=== PATIENT | female | born 1965 | race Hispanic/Latino ===

== ENCOUNTER 2017-02-21 09:52 | Emergency (ER) | payer BC, OTHER ==
[2017-02-21] MEDS ORDERED: ANTIVERT PO ONE (11:27)
--- NOTE | 2017-02-21 11:30 | Emergency Department Report ---
ED General Adult HPI - General Chief complaint: Dizziness Stated complaint: VERTIGO Time Seen by Provider: 02/21/17 11:26 Source: patient, RN notes reviewed Mode of arrival: Ambulatory Limitations: No Limitations - History of Present Illness Initial comments: This is a 51-year-old female. She is previously unknown to me. Her primary care doctor is Dr. Jacob Castellon. She reports a past medical history of hypertension and diabetes. The patient presents to the ER complaining of vertigo. She describes the sensation of vertigo as room spinning, she had a nonspecific change in vision in which she describes her depth perception is off, and she felt like her body was out of place. It resolved with meclizine. There is no severe headache, neck pain, chest pain, abdominal pain or shortness of breath. There is no currently no blurry vision or loss of vision, there is no ataxia. The patient denies a history of eyedrop application, and ocular surgeries. As far as the patient knows, she does not have any chronic asymmetry to her pupils. -: Gradual, days(s) (patient reports symptoms have been going on for the past few days, she reports this started on Friday) Consistency: now resolved Improves with: medication Worsens with: movement Associated Symptoms: denies other symptoms - Related Data Previous Rx's Medication Instructions Recorded Last Taken Type Aspirin [Aspirin TAB] 325 mg PO ONCE #30 tablet 02/21/17 Unknown Rx AtorvaSTATin [Lipitor] 10 mg PO QHS #30 tab 02/21/17 Unknown Rx Meclizine [Antivert] 25 mg PO TID PRN #20 tablet 02/21/17 Unknown Rx Allergies Allergy/AdvReac Type Severity Reaction Status Date / Time No Known Allergies Allergy Unverified 02/21/17 10:43 ED Review of Systems ROS: Stated complaint: VERTIGO Other details as noted in HPI Constitutional: denies: fever, malaise Eyes: denies: vision change ENT: denies: throat pain, epistaxis, congestion Respiratory: denies: cough Cardiovascular: denies: chest pain Gastrointestinal: denies: abdominal pain Genitourinary: denies: dysuria Skin: as per HPI Neurological: as per HPI, abnormal gait, vertigo. denies: headache, numbness, paresthesias, confusion Psychiatric: as per HPI ED Past Medical Hx - Past Medical History Previous Medical History?: Yes Hx Hypertension: Yes Hx Diabetes: Yes - Surgical History Past Surgical History?: No - Social History Smoking Status: Never Smoker Substance Use Type: None - Medications Home Medications: Home Medications Medication Instructions Recorded Confirmed Last Taken Type Aspirin [Aspirin TAB] 325 mg PO ONCE #30 tablet 02/21/17 Unknown Rx AtorvaSTATin [Lipitor] 10 mg PO QHS #30 tab 02/21/17 Unknown Rx Meclizine [Antivert] 25 mg PO TID PRN #20 tablet 02/21/17 Unknown Rx ED Physical Exam - General Limitations: No Limitations General appearance: alert, in no apparent distress - Head Head exam: Present: atraumatic, normocephalic - Eye Eye exam: Present: PERRL (the left pupil is smaller than the right, approximately 3 mm worse the left is 4-5. The right pupil does not react to light, and the left pupil dilates when the room is dark, but does constrict to light application.), EOMI, other (visual acuity intact to finger counting, color perception, reading at a close distance). Absent: nystagmus - ENT ENT exam: Present: normal exam, normal orophraynx, mucous membranes moist, normal external ear exam - Neck Neck exam: Present: normal inspection, full ROM. Absent: tenderness, meningismus - Respiratory Respiratory exam: Present: normal lung sounds bilaterally. Absent: respiratory distress, wheezes, rales, rhonchi, stridor, chest wall tenderness, accessory muscle use, decreased breath sounds, prolonged expiratory - Cardiovascular Cardiovascular Exam: Present: regular rate, normal rhythm, normal heart sounds. Absent: bradycardia, tachycardia, irregular rhythm, systolic murmur, diastolic murmur, rubs, gallop - GI/Abdominal GI/Abdominal exam: Present: soft, normal bowel sounds. Absent: distended, tenderness, guarding, rebound, rigid, pulsatile mass - Extremities Exam Extremities exam: Present: normal inspection, full ROM, normal capillary refill. Absent: tenderness, pedal edema, joint swelling, calf tenderness - Back Exam Back exam: Present: normal inspection, full ROM. Absent: tenderness, CVA tenderness (R), CVA tenderness (L), muscle spasm, paraspinal tenderness, vertebral tenderness - Neurological Exam Neurological exam: Present: alert, oriented X3, normal gait, other (Extraocular movements intact. Tongue midline. No facial droop. Facial sensation intact to light touch in the V1, V2, V3 distribution bilaterally. 5 and 5 strength in 4 extremities.. Sensation is intact to light touch in 4 extremities.). Absent : motor sensory deficit - Psychiatric Psychiatric exam: Present: normal affect, normal mood - Skin Skin exam: Present: warm, dry, intact, normal color. Absent: rash ED Course Vital Signs 02/21/17 02/21/17 02/21/17 10:43 13:17 14:20 Temperature 98.0 F Pulse Rate 95 H 100 H Respiratory 16 16 Rate Blood Pressure 172/95 Blood Pressure 180/95 [Left] O2 Sat by Pulse 100 100 99 Oximetry 02/21/17 02/21/17 02/21/17 14:30 14:40 14:50 Temperature Pulse Rate Respiratory Rate Blood Pressure Blood Pressure [Left] O2 Sat by Pulse 98 99 99 Oximetry 02/21/17 02/21/17 02/21/17 15:00 15:10 15:20 Temperature Pulse Rate Respiratory Rate Blood Pressure Blood Pressure [Left] O2 Sat by Pulse 99 99 98 Oximetry 02/21/17 02/21/17 15:30 15:40 Temperature Pulse Rate Respiratory Rate Blood Pressure Blood Pressure [Left] O2 Sat by Pulse 98 98 Oximetry - Reevaluation(s) Reevaluation #1: 02/21/17 13:58 Differential diagnosis: Vertigo, posterior communicating artery aneurysm, transient ischemic attack, demyelinating disease, strokes, transient ischemic attack Assessment and plan: 51-year-old female with nonspecific change and depth perception, nonspecific sensation of room spinning, and nonspecific disruption in balance, which has since resolved, with large right pupil that stasis the same size both in and illuminated room and in the dark room, 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 She is afebrile, with reassuring vital signs, with the exception of hypertension /elevated blood pressure. She has a GCS of 15, with an NIH score of 0. Given nonspecific findings, pupillary examination, a noncontrast CT scan of the head was performed, did not demonstrate any acute findings, but as per discussion with consulting neurologist at [facility], Dr. Diggs, old lacunes are noted and appreciated. He recommended an MR of the brain, with and without contrast, and MR angiogram of the head and neck, with and without contrast, to exclude stroke, evaluating disease, and posterior communicating artery aneurysm. Extensive discussion had with the patient, as far she knows, has not had any issues with pupillary asymmetry in the past. She was given Valium for sedation because she was quite anxious, and is currently in MR at this time. Reevaluation #2: 02/21/17 16:21 patient is reexamined, and remains asymptomatic. MRI of the brain negative for acute findings. MR angiogram negative for acute findings. Patient requests to go home. We contacted the consulting neurologist, Dr. Diggs, and he has personally reviewed the patient's MRI findings. He recommends initiation of a statin, such as Lipitor, 10 mg. Patient states she is going to follow up with her primary care doctor next month. She'll be started on aspirin, and I have written her for a prescription of Lipitor. Liver function tests and lipid panel not resulted, however the consulting neurologist still recommend statins. Therefore, I have ordered these tests as an add on, and the patient is instructed to contact the ER tomorrow, when I will be working, so I can review her laboratory studies, and make a final recommendation about initiating statin therapy. The patient is accompanied by her , and she is reliable at this time, and she will be discharged. 02/21/17 16:22 Reevaluation #3: 02/22/17 16:36 labs reviewed. liver tests wnl and appreciated triglycerides slightly elevated patient contacted she will continue lipitor and follow up with her pmd ED Medical Decision Making - Lab Data Result diagrams: 02/21/17 11:13 02/21/17 11:13 Vital Signs 02/21/17 02/21/17 10:43 13:17 Temperature 98.0 F Pulse Rate 95 H 100 H Respiratory 16 16 Rate Blood Pressure 172/95 Blood Pressure 180/95 [Left] O2 Sat by Pulse 100 100 Oximetry Lab Results 02/21/17 02/21/17 02/21/17 Range/Units 11:13 11:13 11:13 WBC 8.5 (4.5-11.0) K/mm3 RBC 4.55 (3.65-5.03) M/mm3 Hgb 12.4 (10.1-14.3) gm/dl Hct 37.7 (30.3-42.9) % MCV 83 (79-97) fl MCH 27 L (28-32) pg MCHC 33 (30-34) % RDW 14.1 (13.2-15.2) % Plt Count 372 (140-440) K/mm3 Lymph % (Auto) 32.0 (13.4-35.0) % [place] % (Auto) 9.6 H (0.0-7.3) % Eos % (Auto) 1.6 (0.0-4.3) % Baso % (Auto) 0.7 (0.0-1.8) % Lymph # 2.7 (1.2-5.4) K/mm3 [place] # 0.8 (0.0-0.8) K/mm3 Eos # 0.1 (0.0-0.4) K/mm3 Baso # 0.1 (0.0-0.1) K/mm3 Seg Neutrophils % 56.1 (40.0-70.0) % Seg Neutrophils # 4.8 (1.8-7.7) K/mm3 PT 13.7 (12.2-14.9) Sec. INR 1.06 (0.87-1.13) APTT 25.6 (24.2-36.6) Sec. Thrombin Time (15.1-19.6) Sec. Sodium 137 (137-145) mmol/L Potassium 4.0 (3.6-5.0) mmol/L Chloride 95.4 L (98-107) mmol/L Carbon Dioxide 29 (22-30) mmol/L Anion Gap 17 mmol/L BUN 17 (7-17) mg/dL Creatinine 0.7 (0.7-1.2) mg/dL Estimated GFR > 60 ml/min BUN/Creatinine Ratio 24.28 % Glucose 237 H (65-100) mg/dL Calcium 9.3 (8.4-10.2) mg/dL Troponin T < 0.010 (0.00-0.029) ng/mL 02/21/17 Range/Units 11:13 WBC (4.5-11.0) K/mm3 RBC (3.65-5.03) M/mm3 Hgb (10.1-14.3) gm/dl Hct (30.3-42.9) % MCV (79-97) fl MCH (28-32) pg MCHC (30-34) % RDW (13.2-15.2) % Plt Count (140-440) K/mm3 Lymph % (Auto) (13.4-35.0) % [place] % (Auto) (0.0-7.3) % Eos % (Auto) (0.0-4.3) % Baso % (Auto) (0.0-1.8) % Lymph # (1.2-5.4) K/mm3 [place] # (0.0-0.8) K/mm3 Eos # (0.0-0.4) K/mm3 Baso # (0.0-0.1) K/mm3 Seg Neutrophils % (40.0-70.0) % Seg Neutrophils # (1.8-7.7) K/mm3 PT (12.2-14.9) Sec. INR (0.87-1.13) APTT (24.2-36.6) Sec. Thrombin Time 17.1 (15.1-19.6) Sec. Sodium (137-145) mmol/L Potassium (3.6-5.0) mmol/L Chloride (98-107) mmol/L Carbon Dioxide (22-30) mmol/L Anion Gap mmol/L BUN (7-17) mg/dL Creatinine (0.7-1.2) mg/dL Estimated GFR ml/min BUN/Creatinine Ratio % Glucose (65-100) mg/dL Calcium (8.4-10.2) mg/dL Troponin T (0.00-0.029) ng/mL - EKG Data 02/21/17 14:01 96 bpm, normal axis, QTC 469 ms, poor R wave progression, abnormal EKG, not morphologically consistent with STEMI, there is no prior for comparison. - Radiology Data Radiology results: report reviewed, image reviewed Noncontrast CT scan of the brain demonstrates no acute findings. 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 MR angiogram of the brain is negative. MR angiogram of the neck pending. Critical care attestation.: If time is entered above; I have spent that time in minutes in the direct care of this critically ill patient, excluding procedure time. ED Disposition Clinical Impression: Dizziness, Elevated blood pressure reading Disposition: TO HOME OR SELFCARE Is pt being admited?: No Does the pt Need Aspirin: No Condition: Stable Instructions: Transient Ischemic Attack (ED) Additional Instructions: As we discussed, MR findings demonstrated evidence of old strokes. These note that blood pressure was elevated. This should be further followed up by her primary care doctor within the next month. Long-term complications of hypertension/elevated blood pressure includes stroke, heart attack, disability, , paralysis, loss of quality of life. A prescription for cholesterol (lipitor) has been written for you, however some laboratory studies are still pending. Please contact the emergency department, tomorrow, February 22, anytime after 4 PM, and asked for me personally; [phone]. Additional laboratory studies have been added on, and I will follow-up on most tomorrow, and instructed as to whether or not it is safe and appropriate to initiate a statin medication. Please return to the ER right away with fevers, chills, chest pain, shortness of breath, confusion, intractable nausea or vomiting, inability to tolerate liquid feeds. Follow up with your primary care doctor within the next 2-3 weeks. Follow up with either of those listed neurology specialist (Dr. Truong, Dr. Sequeira), within the next month to 6 weeks. Return to the ER right away with confusion, or change in mental status. Prescriptions: AtorvaSTATin [Lipitor] 10 mg PO QHS #30 tab Aspirin [Aspirin TAB] 325 mg PO ONCE #30 tablet Meclizine [Antivert] 25 mg PO TID PRN #20 tablet PRN Reason: Vertigo Referrals: CA CASTELLON MD [Primary Care Provider] - 3-5 Days GOOD SEQUEIRA MD [Staff Physician] - 3-5 Days CA TRUONG MD [Staff Physician] - 3-5 Days Forms: Work/School Release Form(ED)
[2017-02-21 11:33] LABS: Basophils % (Auto) 0.7 % (0.0-1.8); Eosinophils % (Auto) 1.6 % (0.0-4.3); Hematocrit 37.7 % (30.3-42.9); Hemoglobin 12.4 gm/dl (10.1-14.3); Mean Corpuscular HGB Conc 33 % (30-34); Mean Corpuscular Hemoglobin 27 pg (28-32); Mean Corpuscular Volume 83 fl (79-97); Platelet Count 372 K/mm3 (140-440); Red Blood Count 4.55 M/mm3 (3.65-5.03); Red Cell Distribution Width 14.1 % (13.2-15.2); White Blood Count 8.5 K/mm3 (4.5-11.0)
[2017-02-21 11:42] LABS: Anion Gap 17 mmol/L; BUN/Creatinine Ratio 24.28; Blood Urea Nitrogen 17 mg/dL (7-17); Calcium 9.3 mg/dL (8.4-10.2); Carbon Dioxide 29 mmol/L (22-30); Chloride 95.4 mmol/L (98-107); Glucose 237 mg/dL (65-100); Sodium 137 mmol/L (137-145)
--- NOTE | 2017-02-21 11:44 | Cat Scan Report ---
CT scan of head without contrast: History: absent. Findings: Ventricles are normal in size and midline in location. No evidence of acute ischemia, hemorrhage or mass. No extra axial fluid collection. Normal brainstem and cerebellum. Normal sinuses and mastoid air cells. Impression: No acute intracranial abnormality.
[2017-02-21 11:47] LABS: INR 1.06 (0.87-1.13); Partial Thromboplastin Time 25.6 Sec. (24.2-36.6)
[2017-02-21] MEDS ORDERED: VALIUM IV ONE (12:38)
[2017-02-21 13:18] VITALS: BP 180/95
--- NOTE | 2017-02-21 15:18 | Magnetic Resonance Report ---
MRI BRAIN WITH AND WITHOUT CONTRAST INDICATION: TIA versus CVA versus demyelinating disease. COMPARISON: Head CT from earlier today. FINDINGS: Pre-and post contrast multiplanar and multisequence MRI of the brain performed utilizing 19 ml Multihance intravenously demonstrates normal ventricles and sulci without acute infarct, hemorrhage, mass effect or midline shift. No abnormal extra-axial masses or fluid collections. Normal major intracranial vascular flow voids. Few T2 hyperintensities in the deacon measure approximately 5 mm, axial series 7, images 8 and 9. No abnormal enhancement. Normal posterior fossa structures with symmetric seventh and eighth nerve complexes. Symmetric, grossly unremarkable eye globes. Rightward nasal septal deviation. Clear imaged paranasal sinuses. Normal midline appearance without evidence of Chiari malformation. CONCLUSION: No acute intracranial MRI abnormality with few incidental findings, including old pontine infarcts, as described. Thank you for the opportunity to participate in this patient's care.
--- NOTE | 2017-02-21 15:20 | Magnetic Resonance Report ---
MRA HEAD WITHOUT CONTRAST INDICATION: TIA versus CVA versus demyelinating disease. COMPARISON: None similar. FINDINGS: MRA of the head performed without intravenous contrast and demonstrates no evidence of flow-limiting stenosis, occlusion or vascular malformation. Please note that detection of aneurysms less than 5 mm is limited on this exam. CONCLUSION: Normal study of the k[place] of [place]. Thank you for the opportunity to participate in this patient's care.
--- NOTE | 2017-02-21 15:25 | Magnetic Resonance Report ---
MRA NECK WITH CONTRAST: INDICATION: TIA versus CVA versus demyelinating disease. COMPARISON: None similar. FINDINGS: MRA of the neck performed in conjunction with accompanying brain MRI utilizing 19 mL of MultiHance intravenously and demonstrates patent aortic arch with normal major branching pattern. Imaged innominate, subclavian, vertebral and carotid arteries appear unremarkable. CONCLUSION: Normal MRA of the neck without significant stenosis. Thank you for the opportunity to participate in this patient's care.
[2017-02-21 17:07] LABS: Alanine Aminotransferase 19 units/L (7-56); Albumin 3.5 g/dL (3.9-5); Albumin/Globulin Ratio 0.7 %; Alkaline Phosphatase 92 units/L (35-129); Cholesterol 175 mg/dL (50-199); Creatine Kinase 43 units/L (30-135); HDL Cholesterol 40 mg/dL (40-59); LDL Cholesterol,Direct 101 mg/dL (50-130); Total Protein 8.8 g/dL (6.3-8.2); Triglycerides 174 mg/dL (2-149)
[2017-02-21 17:15] LABS: Bilirubin,Direct < 0.2 mg/dL (0-0.2)
== END 2017-02-21 17:14 | disposition home or self-care (01) ==
LOC: ED 09:52
DX: R42 Dizziness and giddiness (principal); I10 Essential (primary) hypertension; E11.9 Type 2 diabetes mellitus without complications; Z79.82 Long term (current) use of aspirin
CPT/HCPCS: 36415; 70450; 70544; 70548; 70553; 80048; 80061; 80074; 82550; 84484; 85025; 85610; 85670; 85730; 93005; 93010; 96374; 99285; A9577; J3360; 82962

== ENCOUNTER 2017-11-15 11:34 | Emergency (ER) | payer SELFPAY ==
[2017-11-15 11:45] VITALS: BP 183/96
--- NOTE | 2017-11-15 12:25 | XRay Report ---
LEFT WRIST, 2 views: HISTORY: Left wrist injury. Routine views demonstrate the carpal bones to be well mineralized with well preserved bony mineralization and interosseous joint spaces. The carpal and adjacent articular bones have normal contours. The surrounding soft tissues are unremarkable. IMPRESSION: No acute injury is identified.
[2017-11-15] MEDS ORDERED: ULTRAM PO ONE (13:31)
--- NOTE | 2017-11-15 14:14 | Emergency Department Report ---
ED Upper Extremity Inj HPI - General Chief Complaint: Extremity Injury, Upper Stated Complaint: LEFT WRIST PAIN Time Seen by Provider: 11/15/17 13:31 Source: patient Mode of arrival: Ambulatory Limitations: No Limitations - History of Present Illness Initial Comments: pt is a 52 y/o w/f who present s/p GLG yesterday pt states her dog pulled away and tripped landing on her hand causes pain and wrist swelling , there is no open wound no bledding no deformity Complaint: Injury to:: left, wrist Onset/Timin -: days(s) Other Extremity Injury: Wrist: Left Other Injuries: none Handedness: right Place: outdoors Severity scale (0 -10): 3 Improves With: immobilization, rest Worsens With: movement of extremity Context: fall Associated Symptoms: denies: weakness, numbness, neck pain, suspects foreign body, nausea/vomiting, heard/felt popping sensat Treatments Prior to Arrival: other (none ) - Related Data Previous Rx's Medication Instructions Recorded Last Taken Type Aspirin [Aspirin TAB] 325 mg PO ONCE #30 tablet 02/21/17 Unknown Rx AtorvaSTATin [Lipitor] 10 mg PO QHS #30 tab 02/21/17 Unknown Rx Meclizine [Antivert] 25 mg PO TID PRN #20 tablet 02/21/17 Unknown Rx Cyclobenzaprine [Flexeril] 10 mg PO BID PRN #20 tablet 11/15/17 Unknown Rx Menthol/Camphor [[place] 1 applicatio TP TID PRN #1 tube 11/15/17 Unknown Rx Ointment] Naproxen 500 mg PO BID PRN #30 tablet 11/15/17 Unknown Rx Allergies Allergy/AdvReac Type Severity Reaction Status Date / Time No Known Allergies Allergy Unverified 02/21/17 10:43 ED Review of Systems ROS: Stated complaint: LEFT WRIST PAIN Other details as noted in HPI Constitutional: denies: chills, fever Eyes: denies: eye pain, eye discharge, vision change ENT: denies: ear pain, throat pain Respiratory: denies: cough, shortness of breath, wheezing Cardiovascular: denies: chest pain, palpitations Endocrine: no symptoms reported Gastrointestinal: denies: abdominal pain, nausea, diarrhea Genitourinary: denies: urgency, dysuria, discharge Musculoskeletal: joint swelling, arthralgia, myalgia Skin: denies: rash, lesions Neurological: denies: headache, weakness, paresthesias Psychiatric: denies: anxiety, depression Hematological/Lymphatic: denies: easy bleeding, easy bruising ED Past Medical Hx - Past Medical History Previous Medical History?: Yes Hx Hypertension: Yes Hx Diabetes: Yes Additional medical history: healed diabetic foot ulcer 05/2018 - Surgical History Past Surgical History?: No - Social History Smoking Status: Never Smoker Substance Use Type: None - Medications Home Medications: Home Medications Medication Instructions Recorded Confirmed Last Taken Type Aspirin [Aspirin TAB] 325 mg PO ONCE #30 tablet 02/21/17 Unknown Rx AtorvaSTATin [Lipitor] 10 mg PO QHS #30 tab 02/21/17 Unknown Rx Meclizine [Antivert] 25 mg PO TID PRN #20 tablet 02/21/17 Unknown Rx Cyclobenzaprine [Flexeril] 10 mg PO BID PRN #20 tablet 11/15/17 Unknown Rx Menthol/Camphor [[place] 1 applicatio TP TID PRN #1 tube 11/15/17 Unknown Rx Ointment] Naproxen 500 mg PO BID PRN #30 tablet 11/15/17 Unknown Rx ED Physical Exam - General Limitations: No Limitations General appearance: alert, in no apparent distress - Head Head exam: Present: atraumatic, normocephalic - Eye Eye exam: Present: normal appearance, PERRL, EOMI Pupils: Present: normal accommodation - ENT ENT exam: Present: mucous membranes moist - Neck Neck exam: Present: full ROM. Absent: tenderness, lymphadenopathy, thyromegaly - Respiratory Respiratory exam: Present: normal lung sounds bilaterally. Absent: respiratory distress, wheezes, stridor, chest wall tenderness - Cardiovascular Cardiovascular Exam: Present: regular rate, normal rhythm. Absent: systolic murmur, diastolic murmur, rubs, gallop - GI/Abdominal GI/Abdominal exam: Present: soft, normal bowel sounds - Rectal Rectal exam: Present: deferred - Extremities Exam Extremities exam: Present: tenderness (left dorsal wrist mild swelling no deformity no ecchymosis no snuff box tenderness no pain with thumb axial loading ), normal capillary refill, joint swelling. 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 Absent: abrasion, laceration, ecchymosis, deformity, crepidus, dislocation, erythema, tenderness over anatomical snuff box, pain with axial thumb loading Hand Wrist exam: Present: normal inspection, full ROM, tenderness, swelling. Absent: abrasion, laceration, ecchymosis, deformity, crepidus, dislocation, erythema, amputation, nail avulsion, subungual hematoma Neuro motor exam: Present: wrist extension intact, thumb opposition intact, thumb IP flexion intact, thumb adduction intact, fingers 2-5 abduction intact Neurosensory exam: Present: 2-point discrimination, radial nerve intact, ulnar nerve intact, median nerve intact Vascular: Present: Pallo, normal capillary refill, radial pulse, brachial pulse , ulnar pulse. Absent: vascular compromise, pulse deficit radial art, pulse deficit ulnar art, pulse deficit brachial art - Back Exam Back exam: Present: normal inspection, full ROM. Absent: tenderness, CVA tenderness (R), CVA tenderness (L), muscle spasm, paraspinal tenderness, vertebral tenderness, rash noted - Neurological Exam Neurological exam: Present: alert, oriented X3 - Psychiatric Psychiatric exam: Present: normal affect, normal mood - Skin Skin exam: Present: warm, dry, intact, normal color. Absent: rash ED Course Vital Signs 11/15/17 11/15/17 11:40 13:42 Temperature 97.6 F Pulse Rate 97 H Respiratory 16 18 Rate Blood Pressure 183/96 O2 Sat by Pulse 98 Oximetry ED Medical Decision Making - Radiology Data Radiology results: report reviewed, image reviewed no fracture no soft tissue injury - Medical Decision Making this is and left wrist sprain there is mild swelling no deformity numbness no tingling flexion and extension is intact and reproduces mild pain, xray negative for fracture plan: wrist splint nsaids, wrist exercises, muscle relaxant and follow up with pcp in 2-3 days. Critical care attestation.: If time is entered above; I have spent that time in minutes in the direct care of this critically ill patient, excluding procedure time. ED Disposition Clinical Impression: Left wrist sprain Qualifiers: Encounter type: initial encounter Qualified Code(s): S63.502A - Unspecified sprain of left wrist, initial encounter Disposition: TO HOME OR SELFCARE Is pt being admited?: No Does the pt Need Aspirin: No Condition: Good Instructions: Wrist Sprain (ED) Prescriptions: Cyclobenzaprine [Flexeril] 10 mg PO BID PRN #20 tablet PRN Reason: Muscle Spasm Menthol/Camphor [[place] Ointment] 1 applicatio TP TID PRN #1 tube PRN Reason: Pain , Severe (7-10) Naproxen 500 mg PO BID PRN #30 tablet PRN Reason: Pain , Severe (7-10) Referrals: PRIMARY CARE,MD [Primary Care Provider] - 3-5 Days Forms: Work/School Release Form(ED) Time of Disposition: 14:24
== END 2017-11-15 14:39 | disposition home or self-care (01) ==
LOC: ED 11:34
DX: S63.502A Unspecified sprain of left wrist, initial encounter (principal); I10 Essential (primary) hypertension; E11.9 Type 2 diabetes mellitus without complications; W01.0XXA Fall on same level from slipping, tripping and stumbling without subsequent striking against object, initial encounter; Y93.89 Activity, other specified; Y92.89 Other specified places as the place of occurrence of the external cause; Y99.8 Other external cause status
CPT/HCPCS: 99283

== ENCOUNTER 2018-03-22 09:38 | Inpatient (IN) | payer SELFPAY ==
[2018-03-22] MEDS ORDERED: MORPHINE IV ONE (10:33)
[2018-03-22] MEDS ORDERED: ZOFRAN IV ONE (10:33)
--- NOTE | 2018-03-22 10:36 | Emergency Department Report ---
Blank Doc - Documentation Documentation: Patient is 52 years old female history of diabetes and hypertension. Patient presented to the ER complaining of right lower extremity pain and swelling for the last 5 days. Patient denied any fever. No recent travel. No history of DVT before. Differential diagnosis includes cellulitis versus DVT. Labs, IV medication" ultrasound ordered.
[2018-03-22] MEDS ORDERED: NORCO 5/325 PO ONE (11:42)
--- NOTE | 2018-03-22 11:49 | Emergency Department Report ---
HPI - General Chief Complaint: Extremity Problem,Nontraumatic Time Seen by Provider: 03/22/18 10:16 - HPI HPI: Room 8 The patient is a 52-year-old female presenting with a chief complaint of right lower extremity pain and swelling. The patient states for the past 5 days she' s had pain and swelling of the right foot. Patient denies any preceding trauma. Patient denies any recent flights or long car trips. Patient denies any history of fever. Patient denies chest pain or shortness of breath. The patient gives her pain a score of "20/10." Location: [See above] Duration: 5 days Quality: Pain Severity: "20/10" Modifying factors: [see above] Context: [see above] Mode of transportation: [not driving] ED Past Medical Hx - Past Medical History Hx Hypertension: Yes Hx Diabetes: Yes Additional medical history: healed diabetic foot ulcer 05/2018 - Surgical History Past Surgical History?: No - Family History Family history: no significant - Social History Smoking Status: Never Smoker Substance Use Type: None - Medications Home Medications: Home Medications Medication Instructions Recorded Confirmed Last Taken Type Aspirin [Aspirin TAB] 325 mg PO ONCE #30 tablet 02/21/17 Unknown Rx AtorvaSTATin [Lipitor] 10 mg PO QHS #30 tab 02/21/17 Unknown Rx Meclizine [Antivert] 25 mg PO TID PRN #20 tablet 02/21/17 Unknown Rx Cyclobenzaprine [Flexeril] 10 mg PO BID PRN #20 tablet 11/15/17 Unknown Rx Menthol/Camphor [[place] 1 applicatio TP TID PRN #1 tube 11/15/17 Unknown Rx Ointment] Naproxen 500 mg PO BID PRN #30 tablet 11/15/17 Unknown Rx ED Review of Systems ROS: Stated complaint: RIGHT FOOT PAIN Other details as noted in HPI Constitutional: denies: fever Eyes: denies: eye pain ENT: denies: throat pain Respiratory: denies: shortness of breath Cardiovascular: denies: chest pain Endocrine: no symptoms reported Gastrointestinal: denies: abdominal pain Genitourinary: denies: urgency Musculoskeletal: myalgia Skin: change in color Neurological: denies: headache Physical Exam - Physical Exam Vital Signs: Vital Signs 03/22/18 09:50 Temperature 98.1 F Pulse Rate 94 H Respiratory 18 Rate Blood Pressure 178/95 O2 Sat by Pulse 99 Oximetry Physical Exam: GENERAL: The patient is well-developed well-nourished female lying on stretcher not appear to be in acute distress. [] HEENT: Normocephalic. Atraumatic. Extraocular motions are intact. Patient has moist mucous membranes. NECK: Supple. Trachea midline CHEST/LUNGS: Clear to auscultation. There is no respiratory distress noted. HEART/CARDIOVASCULAR: Regular. There is no tachycardia. There is no gallop rub or murmur. ABDOMEN: There is no abdominal distention. SKIN: There is erythema encompassing the dorsum of the right foot. There are patches of pale erythema to the right calf. There is no diaphoresis. NEURO: The patient is awake, alert, and oriented. The patient is cooperative. The patient has normal speech MUSCULOSKELETAL: There is no evidence of acute injury. ED Course Vital Signs 03/22/18 09:50 Temperature 98.1 F Pulse Rate 94 H Respiratory 18 Rate Blood Pressure 178/95 O2 Sat by Pulse 99 Oximetry - Consultations Consultation #1: 03/22/18 12:19 Will order Lovenox when patient's creatinine has resulted ED Medical Decision Making - Lab Data Result diagrams: 03/22/18 12:04 03/22/18 12:04 - Radiology Data Radiology results: report reviewed (right lower extremity Doppler) SANDY FOX Female : 1965 [facility]# [id number] 03/22/18 11:26 - Radiology Dept. Note by DANIEL TANG Acct Num: [id number] : 1965 Patient Age: 52 VASCULAR LAB.PRELIMINARY REPORT. RLE VENOUS DUPLEX DONE. EVIDENCE OF ACUTE DVT IN THE RT.PERONEAL VEIN AT MID CALF. INFORMED AT 1119. Initialized on 03/22/18 11:26 - END OF NOTE - Differential Diagnosis DVT, cellulitis Critical care attestation.: If time is entered above; I have spent that time in minutes in the direct care of this critically ill patient, excluding procedure time. ED Disposition Clinical Impression: Acute deep vein thrombosis (DVT) of right lower extremity, Acute pain of right lower extremity Disposition: OP ADMIT IP TO THIS HOSP Is pt being admited?: Yes Does the pt Need Aspirin: No Condition: Fair Referrals: PRIMARY CARE, [Primary Care Provider] - 3-5 Days Time of Disposition: 12:19 (hospitalist notified (Dr Leiva))
[2018-03-22 12:35] LABS: Basophils # (Auto) 0.1 K/mm3 (0.0-0.1); Basophils % (Auto) 0.6 % (0.0-1.8); Eosinophils # (Auto) 0.3 K/mm3 (0.0-0.4); Hematocrit 32.4 % (30.3-42.9); Hemoglobin 10.4 gm/dl (10.1-14.3); Lymphocytes # (Auto) 1.7 K/mm3 (1.2-5.4); Mean Corpuscular HGB Conc 32 % (30-34); Mean Corpuscular Hemoglobin 26 pg (28-32); Mean Corpuscular Volume 81 fl (79-97); Monocytes # (Auto) 0.9 K/mm3 (0.0-0.8); Monocytes % (Auto) 10.5 % (0.0-7.3); Platelet Count 342 K/mm3 (140-440); Red Blood Count 3.98 M/mm3 (3.65-5.03); Red Cell Distribution Width 16.6 % (13.2-15.2)
[2018-03-22 12:59] LABS: INR 1.11 (0.87-1.13)
[2018-03-22 13:00] LABS: Partial Thromboplastin Time 28.1 Sec. (24.2-36.6)
[2018-03-22 13:02] LABS: Alanine Aminotransferase 13 units/L (7-56); Albumin 3.3 g/dL (3.9-5); BUN/Creatinine Ratio 24; Blood Urea Nitrogen 17 mg/dL (7-17); Calcium 8.9 mg/dL (8.4-10.2); Hemolysis Index 8
[2018-03-22] MEDS ORDERED: LOVENOX SUB-Q ONE ×2 (13:07→13:51)
[2018-03-22] MEDS ORDERED: ZOFRAN IV PRN ×2 (16:05→23:21)
[2018-03-22] MEDS ORDERED: SODIUM CHLORIDE FLUSH SYRINGE 10 ML IV PRN ×2 (16:05→23:21)
[2018-03-22] MEDS ORDERED: TYLENOL PO PRN ×2 (16:05→23:21)
[2018-03-22] MEDS: ZESTRIL PO SCH (17:31)
[2018-03-22] MEDS: HumuLIN R SUB-Q SCH ×2 (17:32→22:01)
[2018-03-22] MEDS: SODIUM CHLORIDE FLUSH SYRINGE 10 ML IV SCH (21:56)
[2018-03-22] MEDS: PEPCID PO SCH (21:56)
[2018-03-22] MEDS: LANTUS SUB-Q SCH (21:57)
[2018-03-22] MEDS ORDERED: MORPHINE IV PRN (23:21)
[2018-03-22] MEDS ORDERED: PERCOCET 5/325 PO PRN (23:21)
[2018-03-22] MEDS ORDERED: VANCOMYCIN PHARMACY TO DOSE IV SCH (23:45)
[2018-03-23] MEDS ORDERED: VANCOMYCIN 2,000 MG in NACL 0.9% 500 ML 500 ML IV ONE (01:30)
[2018-03-23] MEDS: UNASYN/NS 3 GM/100 ML 3 GM/100 ML BAG IV SCH ×5 (02:06→23:17)
[2018-03-23] MEDS: LOVENOX SUB-Q SCH ×3 (02:13→21:41)
[2018-03-23] MEDS: MORPHINE IV PRN ×2 (02:17→21:41)
--- NOTE | 2018-03-23 06:28 | Event Note ---
Date: 03/22/18 See dictated H/p in reports RLE cellulitis RLE DVT
[2018-03-23] MEDS ORDERED: ANTIVERT PO PRN (06:33)
[2018-03-23] MEDS ORDERED: FLEXERIL PO PRN (06:33)
[2018-03-23 06:55] LABS: Basophils % (Auto) 0.6 % (0.0-1.8); Eosinophils # (Auto) 0.3 K/mm3 (0.0-0.4); Eosinophils % (Auto) 3.3 % (0.0-4.3); Hemoglobin 9.2 gm/dl (10.1-14.3); Lymphocytes # (Auto) 2.5 K/mm3 (1.2-5.4); Lymphocytes % (Auto) 31.5 % (13.4-35.0); Mean Corpuscular HGB Conc 33 % (30-34); Mean Corpuscular Hemoglobin 27 pg (28-32); Mean Corpuscular Volume 81 fl (79-97); Monocytes # (Auto) 0.8 K/mm3 (0.0-0.8); Monocytes % (Auto) 9.3 % (0.0-7.3); Platelet Count 289 K/mm3 (140-440); Red Blood Count 3.44 M/mm3 (3.65-5.03); Red Cell Distribution Width 16.1 % (13.2-15.2)
[2018-03-23] MEDS ORDERED: ASPIRIN PO ONE (07:00)
[2018-03-23 07:22] LABS: Alanine Aminotransferase 12 units/L (7-56); Albumin 2.8 g/dL (3.9-5); BUN/Creatinine Ratio 27; Blood Urea Nitrogen 19 mg/dL (7-17); Calcium 8.3 mg/dL (8.4-10.2); Hemolysis Index 0
[2018-03-23] MEDS: HumuLIN R SUB-Q SCH (08:51)
[2018-03-23] MEDS: HumaLOG SUB-Q SCH ×4 (08:51→23:14)
[2018-03-23] MEDS: AMARYL PO SCH (08:59)
--- NOTE | 2018-03-23 09:24 | History and Physical Report ---
CHIEF COMPLAINT: Right lower extremity swelling, especially of the foot, 5 days. HISTORY OF PRESENT ILLNESS: A 52-year-old female with history of hypertension, diabetes, and a healed diabetic foot ulcer in 2017, comes in for right lower extremity pain and swelling, especially of the right foot. Also, warm to touch. It has been going on for 5 days. No preceding trauma. No recent flight. No shortness of breath. No fever, no chills. PAST MEDICAL HISTORY: Significant for hypertension, diabetes, and healed foot ulcer on the left foot. PAST SURGICAL HISTORY: None. FAMILY HISTORY: Hypertension. SOCIAL HISTORY: Does not smoke. No alcohol, no recreational drugs. CURRENT MEDICATIONS: Lipitor 10 mg daily, aspirin 325 mg once a day. REVIEW OF SYSTEMS: Significant for right foot swelling, it was warm to touch. Slight swelling of the ankle. No shortness of breath. Review of systems otherwise negative. A 14-point review of systems done. PHYSICAL EXAMINATION: GENERAL: Middle-aged female, obese, and cooperative during examination. VITAL SIGNS: Blood pressure 178/95, temperature 98.1, pulse is 94, respirations 18. HEENT: Unremarkable. Pupils equal and reactive. NECK: Supple, no lymphadenopathy, no thyromegaly. LUNGS: Clear to auscultation and percussion. Good air entry. CARDIOVASCULAR: S1, S2 heard. No gallop, no murmur, no rub. Apical impulse in the left fifth intercostal space and midclavicular line. ABDOMEN: Soft and benign. No hepatosplenomegaly. No guarding, no rigidity. Hernial orifices are normal. ANIMAL BIOLOGIST: Exam is normal. EXTREMITIES: Right foot is very swollen, and warm to touch. Calf is not swollen. Calf is not tender. Left lower extremity is normal. SKIN: Otherwise normal. LABORATORY DATA: Significant for a duplex scan, which shows right peroneal vein acute DVT. Glucose is 232. Labs are otherwise normal. ASSESSMENT AND PLAN: 1. Right lower extremity deep venous thrombosis, the patient initiated on Lovenox. 2. Right lower extremity cellulitis, the patient initiated on Unasyn and vancomycin. 3. Type 2 diabetes mellitus, the patient on insulin coverage and oral hypoglycemics. 4. Hypertension, continue antihypertensives. 5. Malnutrition, albumin is 3.3. Dietitian consult requested. 6. Deep venous thrombosis prophylaxis, the patient is already on Lovenox. Gastrointestinal prophylaxis initiated. [facility]# [id number] KEREN/DEE
[2018-03-23] MEDS ORDERED: SODIUM CHLORIDE FLUSH SYRINGE 10 ML IV SCH (10:00)
--- NOTE | 2018-03-23 10:17 | Consultation ---
History of Present Illness - Reason for Consult Consult date: 03/23/18 right foot cellulitis Requesting physician: REED PRATHER - History of Present Illness 52 y/o female with history of DM and previous diabetic left foot ulcer infection ; admitted on 03/22/18 due to a week history of worsening right foot/ankle pain, edema, erythma. Denies any recent injuries or trauma. Denies fever or chills. Her home glucose has been 150s. In the ED, temp 98.1, HR 94, R 18, BP 178/95. WBC 8.6. Hg 10.4. Plat 342. Creat 0.7. glucose 231. Right foot XR showed generalized soft tissue swelling with Charcot joint with numerous subluxation, dislocations, fragmentations and hypertrophic sclerotic changes ? osteomyelitis. Microbiology: none Current Antimicrobials: Brice Mcginnis Previous Antimicrobials: Medications and Allergies Allergies Allergy/AdvReac Type Severity Reaction Status Date / Time No Known Allergies Allergy Verified 03/22/18 14:13 Home Medications Medication Instructions Recorded Confirmed Last Taken Type Aspirin [Aspirin TAB] 325 mg PO ONCE #30 tablet 02/21/17 03/23/18 Unknown Rx AtorvaSTATin [Lipitor] 10 mg PO QHS #30 tab 02/21/17 03/23/18 Unknown Rx Meclizine [Antivert] 25 mg PO TID PRN #20 tablet 02/21/17 03/23/18 Unknown Rx Cyclobenzaprine [Flexeril] 10 mg PO BID PRN #20 tablet 11/15/17 03/23/18 Unknown Rx Menthol/Camphor [[place] 1 applicatio TP TID PRN #1 tube 11/15/17 03/23/18 Unknown Rx Ointment] Naproxen 500 mg PO BID PRN #30 tablet 11/15/17 03/23/18 Unknown Rx Active Meds: Active Medications Acetaminophen (Tylenol) 650 mg PO Q4H PRN PRN Reason: Pain MILD(1-3)/Fever >100.5/HERNANDEZ Atorvastatin Calcium (Lipitor) 10 mg PO QHS JOAQUIN Cyclobenzaprine HCl (Flexeril) 10 mg PO BID PRN PRN Reason: Muscle Spasm Enoxaparin Sodium (Lovenox) 100 mg SUB-Q Q12HR JOAQUIN Last Admin: 03/23/18 02:13 Dose: 100 mg Famotidine (Pepcid) 20 mg PO BID [facility] Last Admin: 03/22/18 21:56 Dose: 20 mg Glimepiride (Amaryl) 2 mg PO QDDIAB [facility] Last Admin: 03/23/18 08:59 Dose: 2 mg Ampicillin Sodium/Sulbactam Sodium (Unasyn/Ns 3 Gm/100 Ml) 3 gm in 100 mls @ 100 mls/hr IV Q6HR [facility]; Protocol Last Admin: 03/23/18 07:10 Dose: 100 mls/hr Vancomycin HCl 1,500 mg/ (Sodium Chloride) 530 mls @ 333.333 mls/hr IV Q12H [facility] Insulin Glargine (Lantus) 20 units SUB-Q QHS [facility] Last Admin: 03/22/18 21:57 Dose: 20 units Insulin Human Lispro (Humalog) 0 unit SUB-Q ACHS [facility]; Protocol Last Admin: 03/23/18 08:51 Dose: Not Given Lisinopril (Zestril) 20 mg PO QDAY [facility] Last Admin: 03/22/18 17:31 Dose: 20 mg Losartan Potassium (Cozaar) 100 mg PO QDAY [facility] Meclizine HCl (Antivert) 25 mg PO TID PRN PRN Reason: Vertigo Morphine Sulfate (Morphine) 2 mg IV Q4H PRN PRN Reason: Pain, Moderate (4-6) Last Admin: 03/23/18 02:17 Dose: 2 mg Ondansetron HCl (Zofran) 4 mg IV Q8H PRN PRN Reason: Nausea And Vomiting Oxycodone/Acetaminophen (Percocet 5/325) 1 tab PO Q6H PRN PRN Reason: Pain, Moderate (4-6) Sodium Chloride (Sodium Chloride Flush Syringe 10 Ml) 10 ml IV BID [facility] Last Admin: 03/22/18 21:56 Dose: 10 ml Sodium Chloride (Sodium Chloride Flush Syringe 10 Ml) 10 ml IV PRN PRN PRN Reason: LINE FLUSH Vancomycin HCl (Vancomycin Pharmacy To Dose) 1 each IV PKCONSULT [facility]; Protocol Review of Systems All systems: negative (as per HPI) Physical Examination - Physical Exam Narrative exam: General appearance: Alert in NAD, conversant Eyes: anicteric sclerae, moist conjunctivae; no lid-lag; PERRLA HENT: Atraumatic; oropharynx clear with moist mucous membranes and no mucosal ulcerations/no oral thrush; normal hard and soft palate. Normal external ears. Neck: Trachea midline; supple, no thyromegaly or lymphadenopathy Lungs: CTA, with normal respiratory effort and no intercostal retractions CV: RRR, no murmurs Abdomen: Soft, non-tender; no masses or hepatosplenomegaly Extremities: +marked right foot edema and ankle edema with sole and forefoot erythema. Skin: Normal temperature, turgor and texture; no rash, ulcers or subcutaneous nodules Psych: Appropriate affect, alert and oriented to person, place and time. Neuro: alert and oriented x 3. Moving all extermities Lines: No CVL / PICC - Constitutional Vitals: Vital Signs Temp Pulse Resp BP Pulse Ox 98.8 F 84 20 199/89 92 03/23/18 05:57 03/23/18 05:57 03/23/18 05:57 03/23/18 05:57 03/23/18 05:57 Temperature -Last 24 Hours Temperature 98.8 F Temperature 98.1 F Temperature 98.2 F Temperature 98.2 F Results - Labs CBC & Chem 7: 03/23/18 06:32 03/23/18 06:32 Labs: Abnormal lab results 03/22/18 03/22/18 03/22/18 Range/Units 12:04 12:04 13:17 RBC (3.65-5.03) M/mm3 Hgb (10.1-14.3) gm/dl Hct (30.3-42.9) % MCH 26 L (28-32) pg RDW 16.6 H (13.2-15.2) % [place] % (Auto) 10.5 H (0.0-7.3) % [place] # 0.9 H (0.0-0.8) K/mm3 BUN (7-17) mg/dL Glucose 232 H (65-100) mg/dL POC Glucose 220 H (70-105) Hemoglobin A1c (4-6) % Calcium (8.4-10.2) mg/dL Total Protein 8.5 H (6.3-8.2) g/dL Albumin 3.3 L (3.9-5) g/dL 08/12/18 08/12/18 08/12/18 Range/Units 16:29 16:32 22:02 RBC (3.65-5.03) M/mm3 Hgb (10.1-14.3) gm/dl Hct (30.3-42.9) % MCH (28-32) pg RDW (13.2-15.2) % [place] % (Auto) (0.0-7.3) % [place] # (0.0-0.8) K/mm3 BUN (7-17) mg/dL Glucose (65-100) mg/dL POC Glucose 260 H 273 H (70-105) Hemoglobin A1c 10.7 H (4-6) % Calcium (8.4-10.2) mg/dL Total Protein (6.3-8.2) g/dL Albumin (3.9-5) g/dL 03/23/18 03/23/18 03/23/18 Range/Units 06:32 06:32 07:46 RBC 3.44 L (3.65-5.03) M/mm3 Hgb 9.2 L (10.1-14.3) gm/dl Hct 28.0 L (30.3-42.9) % MCH 27 L (28-32) pg RDW 16.1 H (13.2-15.2) % [place] % (Auto) 9.3 H (0.0-7.3) % [place] # (0.0-0.8) K/mm3 BUN 19 H (7-17) mg/dL Glucose 166 H (65-100) mg/dL POC Glucose 149 H (70-105) Hemoglobin A1c (4-6) % Calcium 8.3 L (8.4-10.2) mg/dL Total Protein (6.3-8.2) g/dL Albumin 2.8 L (3.9-5) g/dL Assessment and Plan Assessment: 1) Right ankle / foot cellulitis: with ? Acute charcot vs osteomyelitis -Right foot XR showed generalized soft tissue swelling with Charcot joint with numerous subluxation, dislocations, fragmentations and hypertrophic sclerotic changes ? osteomyelitis -CRP=7.3. 2) DM - uncontrolled 3) Previous diabetic left foot ulcer infection Plan: -obtain right foot MRI -Podiatry consult -continue nessa and brice for now Thank you for your consultation, will follow up with you. Rachna Sultana MD Infectious Diseases Specialist [facility] ([facility] M [phone] O [phone]
[2018-03-23] MEDS: PEPCID PO SCH ×2 (10:41→21:40)
[2018-03-23] MEDS: COZAAR PO SCH (10:41)
[2018-03-23] MEDS: SODIUM CHLORIDE FLUSH SYRINGE 10 ML IV SCH ×2 (10:42→21:42)
[2018-03-23] MEDS: ZESTRIL PO SCH (10:42)
[2018-03-23] MEDS ORDERED: APRESOLINE IV PRN (12:02)
--- NOTE | 2018-03-23 12:07 | Progress Note ---
Assessment and Plan Assessment and plan: --Hypertensive Urgency/Accelerated HTN Moderate control, continue current antihypertensives and when necessary medications --Rt.Foot cellulitis; on empiric antibiotics follow cultures, foot x-ray, MRI if needed To rule out any bony involvement is, osteomyelitis --Type 2 Diabetes; Accu-Chek sliding scale coverage and ADA diet Insulin as needed, hemoglobin A1c --Morbid obesity; BMI 38.2 Advised weight reduction diet modification, exercise as tolerated --Severe malnutrition; nutrition supplement and supportive care --DVT prophylaxis; Lovenox Closely monitor the patient and adjust management as needed History Interval history: Since seen and examined medical records reviewed Complaints of right foot swelling slightly improved Alert awake oriented 3 Vital signs noted Hospitalist Physical - Constitutional Vitals: Temp Pulse Resp BP Pulse Ox 98.8 F 84 20 199/89 92 03/23/18 05:57 03/23/18 05:57 03/23/18 05:57 03/23/18 05:57 03/23/18 05:57 General appearance: Present: no acute distress, well-nourished, obese - EENT Eyes: Present: PERRL, EOM intact - Neck Neck: Present: supple, normal ROM - Respiratory Respiratory effort: normal Respiratory: bilateral: diminished, negative: rales, rhonchi, wheezing - Cardiovascular Rhythm: regular Heart Sounds: Present: S1 & S2 - Extremities Extremities: no ischemia, No edema, abnormal (swelling rt foot) - Abdominal General gastrointestinal: soft, non-tender, non-distended, normal bowel sounds - Integumentary Integumentary: Present: clear, warm - Psychiatric Psychiatric: appropriate mood/affect, cooperative - Neurologic Neurologic: CNII-XII intact, moves all extremities Results - Labs CBC & Chem 7: 03/25/18 04:27 03/25/18 04:27 Labs: Laboratory Last Values WBC 8.1 K/mm3 (4.5-11.0) 03/23/18 06:32 RBC 3.44 M/mm3 (3.65-5.03) L 03/23/18 06:32 Hgb 9.2 gm/dl (10.1-14.3) L 03/23/18 06:32 Hct 28.0 % (30.3-42.9) L 03/23/18 06:32 MCV 81 fl (79-97) 03/23/18 06:32 MCH 27 pg (28-32) L 03/23/18 06:32 MCHC 33 % (30-34) 03/23/18 06:32 RDW 16.1 % (13.2-15.2) H 03/23/18 06:32 Plt Count 289 K/mm3 (140-440) 03/23/18 06:32 Lymph % (Auto) 31.5 % (13.4-35.0) 03/23/18 06:32 [place] % (Auto) 9.3 % (0.0-7.3) H 03/23/18 06:32 Eos % (Auto) 3.3 % (0.0-4.3) 03/23/18 06:32 Baso % (Auto) 0.6 % (0.0-1.8) 03/23/18 06:32 Lymph # 2.5 K/mm3 (1.2-5.4) 03/23/18 06:32 [place] # 0.8 K/mm3 (0.0-0.8) 03/23/18 06:32 Eos # 0.3 K/mm3 (0.0-0.4) 03/23/18 06:32 Baso # 0.0 K/mm3 (0.0-0.1) 03/23/18 06:32 Seg Neutrophils % 55.3 % (40.0-70.0) 03/23/18 06:32 Seg Neutrophils # 4.5 K/mm3 (1.8-7.7) 03/23/18 06:32 PT 14.9 Sec. (12.2-14.9) 03/22/18 12:04 INR 1.11 (0.87-1.13) 03/22/18 12:04 APTT 28.1 Sec. (24.2-36.6) 03/22/18 12:04 Sodium 140 mmol/L (137-145) 03/23/18 06:32 Potassium 3.9 mmol/L (3.6-5.0) 03/23/18 06:32 Chloride 102.4 mmol/L (98-107) 03/23/18 06:32 Carbon Dioxide 24 mmol/L (22-30) 03/23/18 06:32 Anion Gap 18 mmol/L 03/23/18 06:32 BUN 19 mg/dL (7-17) H 03/23/18 06:32 Creatinine 0.7 mg/dL (0.7-1.2) 03/23/18 06:32 Estimated GFR > 60 ml/min 03/23/18 06:32 BUN/Creatinine Ratio 27 % 03/23/18 06:32 Glucose 166 mg/dL (65-100) H 03/23/18 06:32 POC Glucose 163 (70-105) H 03/23/18 11:34 Hemoglobin A1c 10.7 % (4-6) H 03/22/18 16:29 Calcium 8.3 mg/dL (8.4-10.2) L 03/23/18 06:32 Total Bilirubin 0.20 mg/dL (0.1-1.2) 03/23/18 06:32 AST 16 units/L (5-40) 03/23/18 06:32 ALT 12 units/L (7-56) 03/23/18 06:32 Alkaline Phosphatase 88 units/L (35-129) 03/23/18 06:32 Total Protein 7.0 g/dL (6.3-8.2) 03/23/18 06:32 Albumin 2.8 g/dL (3.9-5) L 03/23/18 06:32 Albumin/Globulin Ratio 0.7 % 03/23/18 06:32
[2018-03-23] MEDS: PERCOCET 5/325 PO PRN (13:13)
[2018-03-23] MEDS: VANCOMYCIN 1,500 MG in NACL 0.9% 500 ML 500 ML IV SCH (13:13)
[2018-03-23] MEDS ORDERED: APRESOLINE PO SCH (14:00)
--- NOTE | 2018-03-23 16:47 | XRay Report ---
FINAL REPORT EXAM: XR FOOT 3+V RT HISTORY: right foot cellulitis TECHNIQUE: AP view of the pelvis and 2 coned-down views of the right hip. PRIORS: None. FINDINGS: There is significant destruction of the navicular and tarsal bones with fragmentation and irregularity of the margins. This also involves the anterior aspect of the calcaneus. There dislocation of the talonavicular joint. Findings are consistent with a Charcot joint with dislocation. However, all of these findings could also be seen in chronic osteomyelitis. There is widening of the talocalcaneal joint measuring 11 mm on the lateral view. The tibiotalar joint is subluxed with fragmentation along the anterior tibia. The tibia is located posterior to the talar dome on the lateral view. On the AP view, there is dislocation/subluxation of the proximal 3rd metatarsal with relationship to the tarsal bones. Significant sclerosis, fragmentation, and bony eburnation is present throughout the tarsal bones and extending into the proximal 2nd and 3rd metatarsal bones. Generalized soft tissue swelling around the foot and ankle is noted. No air in the soft tissues is present. Large bony spur is seen off plantar calcaneus. IMPRESSION: Numerous findings involving the tarsal bones and proximal 2nd and 3rd metatarsal bones. Findings are likely due to a Charcot joint with numerous subluxation/dislocations, fragmentation, and hypertrophic sclerotic bony change identified. There is a major dislocation involving the talonavicular joint and widening of the talocalcaneal joint. All of the destructive findings could also be due to chronic osteomyelitis. Generalized soft tissue swelling is seen.
[2018-03-23] MEDS: APRESOLINE PO SCH (18:41)
[2018-03-23] MEDS: LOPRESSOR PO SCH (21:41)
[2018-03-23] MEDS: LANTUS SUB-Q SCH (23:13)
[2018-03-24] MEDS: VANCOMYCIN 1,500 MG in NACL 0.9% 500 ML 500 ML IV SCH ×3 (01:23→23:28)
[2018-03-24] MEDS: APRESOLINE PO SCH ×4 (03:21→21:22)
[2018-03-24] MEDS: UNASYN/NS 3 GM/100 ML 3 GM/100 ML BAG IV SCH ×4 (06:53→23:28)
[2018-03-24] MEDS: HumaLOG SUB-Q SCH ×4 (08:09→21:18)
[2018-03-24] MEDS: AMARYL PO SCH (08:58)
--- NOTE | 2018-03-24 10:35 | Progress Note ---
Assessment and Plan Assessment and plan: --Hypertensive Urgency/Accelerated HTN Moderate control, continue current antihypertensives and when necessary medications --Foot cellulitis; on empiric antibiotics Elevate the limb and follow cultures, foot x-ray ,multiple abnormalitied , consult ortho MRI rule out osteomyelitis --Extremity right DVT; continue Lovenox for dose, elevate the limb, supportive --Type 2 Diabetes; Accu-Chek sliding scale coverage and ADA diet Insulin as needed, hemoglobin A1c --Morbid obesity; BMI 38.2 Advised weight reduction diet modification, exercise as tolerated --Severe malnutrition; [place] supplement and supportive care --DVT prophylaxis; Lovenox Closely monitor the patient and adjust management as needed History Interval history: Patient seen and examined medical records reviewed Patient underwent MRI of the foot, pending report Swelling slightly improved , alert awake oriented 3 Vital signs stable Hospitalist Physical - Constitutional Vitals: Temp Pulse Resp BP Pulse Ox 98.5 F 78 18 159/83 95 03/24/18 05:22 03/24/18 06:05 03/24/18 06:05 03/24/18 06:05 03/24/18 05:22 General appearance: Present: no acute distress, well-nourished, obese - EENT Eyes: Present: PERRL, EOM intact - Neck Neck: Present: supple, normal ROM - Respiratory Respiratory effort: normal Respiratory: negative: rales, rhonchi, wheezing - Cardiovascular Rhythm: regular Heart Sounds: Present: S1 & S2 - Extremities Extremities: abnormal (lower extremity swelling tenderness, right foot swelling tenderness) Extremity abnormal: edema - Abdominal General gastrointestinal: soft, non-tender, non-distended, normal bowel sounds - Integumentary Integumentary: Present: clear, warm - Psychiatric Psychiatric: appropriate mood/affect, cooperative - Neurologic Neurologic: CNII-XII intact, moves all extremities Results - Labs CBC & Chem 7: 03/23/18 06:32 03/23/18 06:32 Labs: Laboratory Last Values WBC 8.1 K/mm3 (4.5-11.0) 03/23/18 06:32 RBC 3.44 M/mm3 (3.65-5.03) L 03/23/18 06:32 Hgb 9.2 gm/dl (10.1-14.3) L 03/23/18 06:32 Hct 28.0 % (30.3-42.9) L 03/23/18 06:32 MCV 81 fl (79-97) 03/23/18 06:32 MCH 27 pg (28-32) L 03/23/18 06:32 MCHC 33 % (30-34) 03/23/18 06:32 RDW 16.1 % (13.2-15.2) H 03/23/18 06:32 Plt Count 289 K/mm3 (140-440) 03/23/18 06:32 Lymph % (Auto) 31.5 % (13.4-35.0) 03/23/18 06:32 [place] % (Auto) 9.3 % (0.0-7.3) H 03/23/18 06:32 Eos % (Auto) 3.3 % (0.0-4.3) 03/23/18 06:32 Baso % (Auto) 0.6 % (0.0-1.8) 03/23/18 06:32 Lymph # 2.5 K/mm3 (1.2-5.4) 03/23/18 06:32 [place] # 0.8 K/mm3 (0.0-0.8) 03/23/18 06:32 Eos # 0.3 K/mm3 (0.0-0.4) 03/23/18 06:32 Baso # 0.0 K/mm3 (0.0-0.1) 03/23/18 06:32 Seg Neutrophils % 55.3 % (40.0-70.0) 03/23/18 06:32 Seg Neutrophils # 4.5 K/mm3 (1.8-7.7) 03/23/18 06:32 PT 14.9 Sec. (12.2-14.9) 03/22/18 12:04 INR 1.11 (0.87-1.13) 03/22/18 12:04 APTT 28.1 Sec. (24.2-36.6) 03/22/18 12:04 Sodium 140 mmol/L (137-145) 03/23/18 06:32 Potassium 3.9 mmol/L (3.6-5.0) 03/23/18 06:32 Chloride 102.4 mmol/L (98-107) 03/23/18 06:32 Carbon Dioxide 24 mmol/L (22-30) 03/23/18 06:32 Anion Gap 18 mmol/L 03/23/18 06:32 BUN 19 mg/dL (7-17) H 03/23/18 06:32 Creatinine 0.7 mg/dL (0.7-1.2) 03/23/18 06:32 Estimated GFR > 60 ml/min 03/23/18 06:32 BUN/Creatinine Ratio 27 % 03/23/18 06:32 Glucose 166 mg/dL (65-100) H 03/23/18 06:32 POC Glucose 93 (70-105) 03/24/18 07:36 Hemoglobin A1c 10.7 % (4-6) H 03/22/18 16:29 Calcium 8.3 mg/dL (8.4-10.2) L 03/23/18 06:32 Total Bilirubin 0.20 mg/dL (0.1-1.2) 03/23/18 06:32 AST 16 units/L (5-40) 03/23/18 06:32 ALT 12 units/L (7-56) 03/23/18 06:32 Alkaline Phosphatase 88 units/L (35-129) 03/23/18 06:32 C-Reactive Protein 7.30 mg/dL (0.00-1.30) H 03/23/18 06:32 Total Protein 7.0 g/dL (6.3-8.2) 03/23/18 06:32 Albumin 2.8 g/dL (3.9-5) L 03/23/18 06:32 Albumin/Globulin Ratio 0.7 % 03/23/18 06:32
[2018-03-24] MEDS: LOPRESSOR PO SCH ×2 (11:14→21:23)
[2018-03-24] MEDS: COZAAR PO SCH (11:14)
[2018-03-24] MEDS: LOVENOX SUB-Q SCH ×2 (11:15→21:22)
[2018-03-24] MEDS: SODIUM CHLORIDE FLUSH SYRINGE 10 ML IV SCH ×2 (11:15→21:24)
[2018-03-24] MEDS: ZESTRIL PO SCH (11:15)
[2018-03-24] MEDS: PEPCID PO SCH ×2 (11:15→21:23)
--- NOTE | 2018-03-24 14:36 | Consultation ---
History of Present Illness Consult date: 03/24/18 Reason for consult: other (Right foot pain and swelling) - History of present illness History of present illness: 52 yo diabetic female with recently noted pain and swelling of her right foot. She says she has a h/o RLE DVT. Past History Past Medical History: diabetes, hyperlipidemia Medications and Allergies Allergies Allergy/AdvReac Type Severity Reaction Status Date / Time No Known Allergies Allergy Verified 03/22/18 14:13 Home Medications Medication Instructions Recorded Confirmed Last Taken Type Aspirin [Aspirin TAB] 325 mg PO ONCE #30 tablet 02/21/17 03/23/18 Unknown Rx AtorvaSTATin [Lipitor] 10 mg PO QHS #30 tab 02/21/17 03/23/18 Unknown Rx Meclizine [Antivert] 25 mg PO TID PRN #20 tablet 02/21/17 03/23/18 Unknown Rx Cyclobenzaprine [Flexeril] 10 mg PO BID PRN #20 tablet 11/15/17 03/23/18 Unknown Rx Menthol/Camphor [[place] 1 applicatio TP TID PRN #1 tube 11/15/17 03/23/18 Unknown Rx Ointment] Naproxen 500 mg PO BID PRN #30 tablet 11/15/17 03/23/18 Unknown Rx Active Meds: Active Medications Acetaminophen (Tylenol) 650 mg PO Q4H PRN PRN Reason: Pain MILD(1-3)/Fever >100.5/HERNANDEZ Atorvastatin Calcium (Lipitor) 10 mg PO QHS [facility] Last Admin: 03/23/18 21:41 Dose: 10 mg Cyclobenzaprine HCl (Flexeril) 10 mg PO BID PRN PRN Reason: Muscle Spasm Enoxaparin Sodium (Lovenox) 100 mg SUB-Q Q12HR [facility] Last Admin: 03/24/18 11:15 Dose: 100 mg Famotidine (Pepcid) 20 mg PO BID [facility] Last Admin: 03/24/18 11:15 Dose: 20 mg Glimepiride (Amaryl) 2 mg PO QDDIAB [facility] Last Admin: 03/24/18 08:58 Dose: 2 mg Hydralazine HCl (Apresoline) 10 mg IV Q4HR PRN PRN Reason: Hypertension Hydralazine HCl (Apresoline) 50 mg PO Q8HR [facility] Last Admin: 03/24/18 14:15 Dose: 50 mg Ampicillin Sodium/Sulbactam Sodium (Unasyn/Ns 3 Gm/100 Ml) 3 gm in 100 mls @ 100 mls/hr IV Q6HR [facility]; Protocol Last Admin: 03/24/18 11:13 Dose: 100 mls/hr Vancomycin HCl 1,500 mg/ (Sodium Chloride) 530 mls @ 333.333 mls/hr IV Q12H [facility] Last Admin: 03/24/18 11:13 Dose: 333.333 mls/hr Insulin Glargine (Lantus) 20 units SUB-Q QHS [facility] Last Admin: 03/23/18 23:13 Dose: 20 units Insulin Human Lispro (Humalog) 0 unit SUB-Q ACHS [facility]; Protocol Last Admin: 03/24/18 12:29 Dose: Not Given Lisinopril (Zestril) 20 mg PO QDAY [facility] Last Admin: 03/24/18 11:15 Dose: 20 mg Losartan Potassium (Cozaar) 100 mg PO QDAY [facility] Last Admin: 03/24/18 11:14 Dose: 100 mg Meclizine HCl (Antivert) 25 mg PO TID PRN PRN Reason: Vertigo Metoprolol Tartrate (Lopressor) 12.5 mg PO BID [facility] Last Admin: 03/24/18 11:14 Dose: 12.5 mg Morphine Sulfate (Morphine) 2 mg IV Q4H PRN PRN Reason: Pain, Moderate (4-6) Last Admin: 03/23/18 21:41 Dose: 2 mg Ondansetron HCl (Zofran) 4 mg IV Q8H PRN PRN Reason: Nausea And Vomiting Oxycodone/Acetaminophen (Percocet 5/325) 1 tab PO Q6H PRN PRN Reason: Pain, Moderate (4-6) Last Admin: 03/23/18 13:13 Dose: 1 tab Sodium Chloride (Sodium Chloride Flush Syringe 10 Ml) 10 ml IV BID [facility] Last Admin: 03/24/18 11:15 Dose: 10 ml Sodium Chloride (Sodium Chloride Flush Syringe 10 Ml) 10 ml IV PRN PRN PRN Reason: LINE FLUSH Last Admin: 03/23/18 21:42 Dose: 10 ml Vancomycin HCl (Vancomycin Pharmacy To Dose) 1 each IV PKCONSULT [facility]; Protocol Review of Systems All systems: negative (none) Exam Vital Signs Temp Pulse Resp BP Pulse Ox 98.1 F 94 H 18 178/95 99 03/22/18 09:50 03/22/18 09:50 03/22/18 09:50 03/22/18 09:50 03/22/18 09:50 - General physical appearance Positive: well developed, well nourished, no distress, obese - Eyes Positive: PERRL, normal occular movement - ENT Positive: normal pinna, normal nares, normal mucosa, no hearing loss, no congestion - Neck Positive: no masses, no bruits, trachea midline, no venous distension - Respiratory Positive: normal expansion, normal respiratory effort, clear to auscultation - Cardiovascular Rhythm: regular Heart Sounds: Present: S1 & S2. Absent: rub, click - Extremities Extremity abnormal: other (The right foot is moderately edematous and warm. The right DP is 2+ but I cannot palpate the right PT. The medial arch of her right foot is erythematous but I cannot appreciate any underlying crepitus or fluctuance.) - Breasts Breasts: deferred - Abdomen Abdomen: Present: soft, bowel sounds normal. Absent: tender, distended Hernia: none - Genitourinary Female Genitourinary: deferred - Integumentary no rash, no growths, no abnormal pigmentation - Neurologic Neurologic: alert and oriented to time, place and person, motor strength and sensation are grossly intact - Musculoskeletal normal gait, normal posture - Psychiatric Psychiatric: appropriate mood/affect, intact judgment & insight Results - Labs 03/23/18 06:32 03/23/18 06:32 Abnormal lab results 03/23/18 03/23/18 03/24/18 Range/Units 06:32 16:11 12:30 POC Glucose 109 H 68 L (70-105) C-Reactive Protein 7.30 H (0.00-1.30) mg/dL - Imaging Additional studies: X-rays of right foot were reviewed. Assessment and Plan - Patient Problems (1) Acute pain of right lower extremity Current Visit: Yes Status: Acute Plan to address problem: 1) Will check report of right foot MRI done this morning.
--- NOTE | 2018-03-24 16:01 | Vascular Lab Report ---
Right Lower Extremity Venous Duplex Study: Reason for Exam: Pain and swelling of the right lower extremity. Comments on the Right: Acute deep venous thrombosis is seen in the peroneal vein in the mid calf. The remaining veins visualized are freely compressible without evidence of internal echogenicity. Spontaneous and phasic flow is present proximally. Comments on the Left: A limited duplex study was done of the proximal veins of the left lower extremity. All veins visualized are freely compressible without evidence of internal echogenicity. Flow is spontaneous and phasic throughout. No evidence of acute or chronic thrombus is seen in any of the vessels visualized. Impression: Acute deep venous thrombosis in the peroneal vein of the mid portion of the right calf. No evidence of acute deep venous thrombosis in the proximal left lower extremity.
--- NOTE | 2018-03-24 18:11 | Progress Note ---
Assessment and Plan Assessment: 1) Right ankle / foot cellulitis: with ? Acute charcot vs osteomyelitis -better -Right foot XR showed generalized soft tissue swelling with Charcot joint with numerous subluxation, dislocations, fragmentations and hypertrophic sclerotic changes ? osteomyelitis -CRP=7.3. -US showed acute DVT of the right peroneal vein. 2) DM - uncontrolled 3) Previous diabetic left foot ulcer infection Plan: -right foot MRI - pending -Podiatry consult appreciate -continue vanco and unasyn for now Thank you for your consultation, will follow up with you. Rachna Sultana MD Infectious Diseases Specialist [facility] ([facility]) M [phone] O [phone] Subjective Date of service: 03/24/18 Principal diagnosis: right foot pain/edema Interval history: Feels ok no fever. Microbiology: none Current Antimicrobials: Unasyn [place] Previous Antimicrobials: Objective - Exam Narrative Exam: General appearance: Alert in NAD, conversant Eyes: anicteric sclerae, moist conjunctivae; no lid-lag; PERRLA HENT: Atraumatic; oropharynx clear with moist mucous membranes and no mucosal ulcerations/no oral thrush; normal hard and soft palate. Normal external ears. Neck: Trachea midline; supple, no thyromegaly or lymphadenopathy Lungs: CTA, with normal respiratory effort and no intercostal retractions CV: RRR, no murmurs Abdomen: Soft, non-tender; no masses or hepatosplenomegaly Extremities: +marked right foot edema and ankle edema with sole and forefoot erythema. Skin: Normal temperature, turgor and texture; no rash, ulcers or subcutaneous nodules Psych: Appropriate affect, alert and oriented to person, place and time. Neuro: alert and oriented x 3. Moving all extermities Lines: No CVL / PICC - Constitutional Vitals: Vital Signs Temp Pulse Resp BP Pulse Ox 97.8 F 98 H 20 156/75 97 03/24/18 12:42 03/24/18 12:42 03/24/18 12:42 03/24/18 12:42 03/24/18 12:42 Temperature -Last 24 Hours Temperature 97.8 F Temperature 98.5 F Temperature 97.8 F Temperature 98.5 F - Labs CBC & Chem 7: 03/23/18 06:32 03/23/18 06:32 Labs: Abnormal lab results 03/24/18 Range/Units 12:30 POC Glucose 68 L (70-105)
[2018-03-24] MEDS: PERCOCET 5/325 PO PRN (21:25)
[2018-03-24] MEDS: LANTUS SUB-Q SCH (21:30)
[2018-03-25 05:30] LABS: Basophils % (Auto) 0.6 % (0.0-1.8); Eosinophils # (Auto) 0.3 K/mm3 (0.0-0.4); Eosinophils % (Auto) 3.1 % (0.0-4.3); Hematocrit 27.1 % (30.3-42.9); Hemoglobin 8.7 gm/dl (10.1-14.3); Lymphocytes # (Auto) 2.7 K/mm3 (1.2-5.4); Lymphocytes % (Auto) 31.2 % (13.4-35.0); Mean Corpuscular HGB Conc 32 % (30-34); Mean Corpuscular Hemoglobin 26 pg (28-32); Mean Corpuscular Volume 81 fl (79-97); Monocytes # (Auto) 0.7 K/mm3 (0.0-0.8); Monocytes % (Auto) 8.4 % (0.0-7.3); Platelet Count 324 K/mm3 (140-440); Red Blood Count 3.34 M/mm3 (3.65-5.03); Red Cell Distribution Width 16.6 % (13.2-15.2)
[2018-03-25 05:55] LABS: BUN/Creatinine Ratio 25; Blood Urea Nitrogen 20 mg/dL (7-17); Calcium 8.8 mg/dL (8.4-10.2); Hemolysis Index 0
[2018-03-25] MEDS: APRESOLINE PO SCH ×3 (06:08→21:43)
[2018-03-25] MEDS: UNASYN/NS 3 GM/100 ML 3 GM/100 ML BAG IV SCH ×2 (06:08→13:11)
[2018-03-25] MEDS: HumaLOG SUB-Q SCH ×4 (08:20→23:11)
[2018-03-25] MEDS: COZAAR PO SCH (10:57)
[2018-03-25] MEDS: PEPCID PO SCH ×2 (10:59→21:44)
[2018-03-25] MEDS: LOPRESSOR PO SCH ×2 (10:59→21:43)
[2018-03-25] MEDS: PERCOCET 5/325 PO PRN ×2 (11:00→21:45)
[2018-03-25] MEDS: SODIUM CHLORIDE FLUSH SYRINGE 10 ML IV SCH ×2 (11:01→21:48)
[2018-03-25] MEDS: ZESTRIL PO SCH (11:01)
[2018-03-25] MEDS: LOVENOX SUB-Q SCH ×2 (11:02→21:45)
[2018-03-25] MEDS: AMARYL PO SCH (11:09)
--- NOTE | 2018-03-25 12:10 | Magnetic Resonance Report ---
MRI RIGHT FOOT WITHOUT AND WITH CONTRAST: 03/24/18 21:02:00 CLINICAL: Pain and swelling. Charcot versus osteomyelitis. COMPARISON:Right foot X-rays 03/23/18 TECHNIQUE: Sagittal, coronal and axial T1, coronal and axial T2 fat sat, sagittal STIR and sagittal, coronal and axial postcontrast T1 fat sat sequences on a 1.5 Eliana magnet. 12 cc of Multihance was injected intravenously for the contrast portion of the exam and consent was obtained prior to the administration of contrast. FINDINGS: Destructive changes in the midfoot with fragmentation of the talus and navicular bones with tibiotalar dislocation, talonavicular dislocation and calcaneal cuboid dislocation. The cuboid is eroded and displaced laterally. Marrow edema of the bones of the midfoot and hindfoot along with enhancement of the bones postcontrast. Cortical erosion and marrow edema of the distal tibia and calcaneus with enhancement post contrast. The marrow edema of the distal tibia involves the distal 5 cm of the bone. The distal fibula also demonstrates marrow edema with abnormal enhancement post contrast. Destructive changes in the proximal metatarsals with abnormal marrow edema and enhancement. A large central fluid collection at the junction of the midfoot and hindfoot measures approximately 7 x 5 x 5 cm and demonstrates peripheral enhancement. Fluid in all of the tendon sheaths and extensive peripheral soft tissue edema with skin thickening. No air collections are identified. IMPRESSION: Destructive changes in the midfoot with fragmentation of bones and dislocations. The central fluid collection at the junction of the midfoot and hindfoot is consistent with abscess and marrow changes and enhancement are consistent with osteomyelitis.
--- NOTE | 2018-03-25 13:01 | Progress Note ---
Assessment and Plan Assessment: 1) Right ankle / foot cellulitis, abscess and osteomyelitis: -Right foot XR showed generalized soft tissue swelling with Charcot joint with numerous subluxation, dislocations, fragmentations and hypertrophic sclerotic changes ? osteomyelitis -CRP=7.3. -US showed acute DVT of the right peroneal vein -MRI showed large abscess in the midfoot 7x5x5 cm, extensive destructive bone changes, fragmentation and dislocation c/w osteomyelitis 2) DM - uncontrolled 3) Previous diabetic left foot ulcer infection Plan: -discussed with Dr Chaves - going to the OR for I+D -hold off IV abx before sueegery to increase cultures yield -needs prolonged IV abx 8 weeks and prob HBO and total contact casting to try to save foot - will discuss with Dr Chaves [facility] I am rounding on 03/[address] Haley Thank you for your consultation, will follow up with you. Rachna Sultana MD Infectious Diseases Specialist [facility] ([facility]) M [phone] O [phone] Subjective Date of service: 03/25/18 Principal diagnosis: right foot pain/edema Interval history: Feels ok no fever. Microbiology: none Current Antimicrobials: Unasyn Vanco Previous Antimicrobials: Objective - Exam Narrative Exam: General appearance: Alert in NAD, conversant Eyes: anicteric sclerae, moist conjunctivae; no lid-lag; PERRLA HENT: Atraumatic; oropharynx clear with moist mucous membranes and no mucosal ulcerations/no oral thrush; normal hard and soft palate. Normal external ears. Neck: Trachea midline; supple, no thyromegaly or lymphadenopathy Lungs: CTA, with normal respiratory effort and no intercostal retractions CV: RRR, no murmurs Abdomen: Soft, non-tender; no masses or hepatosplenomegaly Extremities: +marked right foot edema and ankle edema with sole and forefoot erythema. Skin: Normal temperature, turgor and texture; no rash, ulcers or subcutaneous nodules Psych: Appropriate affect, alert and oriented to person, place and time. Neuro: alert and oriented x 3. Moving all extermities Lines: No CVL / PICC - Constitutional Vitals: Vital Signs Temp Pulse Resp BP Pulse Ox 98.9 F 85 20 161/84 95 03/25/18 11:40 03/25/18 11:40 03/25/18 11:40 03/25/18 11:40 03/25/18 11:40 Temperature -Last 24 Hours Temperature 98.9 F Temperature 97.8 F Temperature 98.7 F Temperature 97.9 F - Labs CBC & Chem 7: 03/25/18 04:27 03/25/18 04:27 Labs: Abnormal lab results 03/25/18 03/25/18 03/25/18 Range/Units 04:27 04:27 11:54 RBC 3.34 L (3.65-5.03) M/mm3 Hgb 8.7 L (10.1-14.3) gm/dl Hct 27.1 L (30.3-42.9) % MCH 26 L (28-32) pg RDW 16.6 H (13.2-15.2) % [place] % (Auto) 8.4 H (0.0-7.3) % BUN 20 H (7-17) mg/dL POC Glucose 116 H (70-105)
[2018-03-25] MEDS: VANCOMYCIN 1,500 MG in NACL 0.9% 500 ML 500 ML IV SCH (13:12)
--- NOTE | 2018-03-25 14:44 | Progress Note ---
Assessment and Plan - Patient Problems (1) Acute pain of right lower extremity Current Visit: Yes Status: Acute (2) Abscess of right foot Current Visit: Yes Status: Acute Plan to address problem: 1) I&D tomorrow 2) NPO after MN 3) Poor prognosis regarding having a functional right foot Subjective Date of service: 03/25/18 Patient Reports: Positive: no new complaints Objective Vital Signs - 12hr 03/25/18 03/25/18 03/25/18 05:57 06:08 10:57 Temperature 97.8 F Pulse Rate 77 79 79 Respiratory 18 Rate Blood Pressure 150/72 150/72 150/72 O2 Sat by Pulse 96 Oximetry 03/25/18 03/25/18 03/25/18 10:59 11:01 11:40 Temperature 98.9 F Pulse Rate 79 79 85 Respiratory 20 Rate Blood Pressure 150/72 150/72 161/84 O2 Sat by Pulse 95 Oximetry - Musculoskeletal other (No change in right foot exam.) - Labs 03/25/18 04:27 03/25/18 04:27 Diabetes panel 03/25/18 Range/Units 04:27 Sodium 138 (137-145) mmol/L Potassium 3.7 (3.6-5.0) mmol/L Chloride 103.3 (98-107) mmol/L Carbon Dioxide 25 (22-30) mmol/L BUN 20 H (7-17) mg/dL Creatinine 0.8 (0.7-1.2) mg/dL Glucose 85 (65-100) mg/dL Calcium 8.8 (8.4-10.2) mg/dL Calcium panel 03/25/18 Range/Units 04:27 Calcium 8.8 (8.4-10.2) mg/dL Pituitary panel 03/25/18 Range/Units 04:27 Sodium 138 (137-145) mmol/L Potassium 3.7 (3.6-5.0) mmol/L Chloride 103.3 (98-107) mmol/L Carbon Dioxide 25 (22-30) mmol/L BUN 20 H (7-17) mg/dL Creatinine 0.8 (0.7-1.2) mg/dL Glucose 85 (65-100) mg/dL Calcium 8.8 (8.4-10.2) mg/dL Adrenal panel 03/25/18 Range/Units 04:27 Sodium 138 (137-145) mmol/L Potassium 3.7 (3.6-5.0) mmol/L Chloride 103.3 (98-107) mmol/L Carbon Dioxide 25 (22-30) mmol/L BUN 20 H (7-17) mg/dL Creatinine 0.8 (0.7-1.2) mg/dL Glucose 85 (65-100) mg/dL Calcium 8.8 (8.4-10.2) mg/dL - Imaging Additional Studies: MRI of right foot was reviewed with the radiologist.
--- NOTE | 2018-03-25 19:50 | Progress Note ---
Assessment and Plan Assessment and plan: --Rt Foot cellulitis; on empiric antibiotics Elevate the limb and follow cultures, foot x-ray ,multiple abnormalitied , consult ortho MRI ; destructive changes , abscess , osteomyelitis New empiric antibiotics, surgeon consulted for possible IND/debridement ID following, Abx held for better cultures yielded --Extremity right DVT; continue Lovenox full dose, elevate the limb, supportive --Hypertensive Urgency/Accelerated HTN Moderate control, continue current antihypertensives and when necessary medications --Type 2 Diabetes; Accu-Chek sliding scale coverage and ADA diet Insulin as needed, hemoglobin A1c --Morbid obesity; BMI 38.2 Advised weight reduction diet modification, exercise as tolerated --Severe malnutrition; Titian supplement and supportive care --DVT prophylaxis; Lovenox Closely monitor the patient and adjust management as needed consults and recommendations noted and appreciated History Interval history: Patient seen and examined medical records reviewed Right lower extremity swelling slightly worse Right foot was red and tender Patient is alert awake oriented 3 Has no new complaints MRI findings reviewed Hospitalist Physical - Constitutional Vitals: Temp Pulse Resp BP Pulse Ox 99.3 F 85 20 157/83 95 03/25/18 16:57 03/25/18 15:33 03/25/18 16:57 03/25/18 16:57 03/25/18 11:40 General appearance: Present: no acute distress, well-nourished, obese (morbidly obese) - EENT Eyes: Present: PERRL, EOM intact - Neck Neck: Present: supple, normal ROM - Respiratory Respiratory effort: normal Respiratory: negative: rales, rhonchi, wheezing - Cardiovascular Rhythm: regular Heart Sounds: Present: S1 & S2 - Extremities Extremities: abnormal (rt foot swelling) Extremity abnormal: edema (rt LE) - Abdominal General gastrointestinal: soft, non-tender, non-distended, normal bowel sounds - Integumentary Integumentary: Present: clear, warm - Psychiatric Psychiatric: appropriate mood/affect, cooperative - Neurologic Neurologic: CNII-XII intact, moves all extremities Results - Labs CBC & Chem 7: 03/25/18 04:27 03/25/18 04:27 Labs: Laboratory Last Values WBC 8.8 K/mm3 (4.5-11.0) 03/25/18 04:27 RBC 3.34 M/mm3 (3.65-5.03) L 03/25/18 04:27 Hgb 8.7 gm/dl (10.1-14.3) L 03/25/18 04:27 Hct 27.1 % (30.3-42.9) L 03/25/18 04:27 MCV 81 fl (79-97) 03/25/18 04:27 MCH 26 pg (28-32) L 03/25/18 04: MCHC 32 % (30-34) 03/25/18 04:27 RDW 16.6 % (13.2-15.2) H 03/25/18 04:27 Plt Count 324 K/mm3 (140-440) 03/25/18 04:27 Lymph % (Auto) 31.2 % (13.4-35.0) 03/25/18 04: [place] % (Auto) 8.4 % (0.0-7.3) H 03/25/18 04:27 Eos % (Auto) 3.1 % (0.0-4.3) 03/25/18 04: Baso % (Auto) 0.6 % (0.0-1.8) 03/25/18 04:27 Lymph # 2.7 K/mm3 (1.2-5.4) 03/25/18 04:27 [place] # 0.7 K/mm3 (0.0-0.8) 03/25/18 04:27 Eos # 0.3 K/mm3 (0.0-0.4) 03/25/18 04:27 Baso # 0.0 K/mm3 (0.0-0.1) 03/25/18 04:27 Seg Neutrophils % 56.7 % (40.0-70.0) 03/25/18 04:27 Seg Neutrophils # 5.0 K/mm3 (1.8-7.7) 03/25/18 04:27 PT 14.9 Sec. (12.2-14.9) 03/22/18 12:04 INR 1.11 (0.87-1.13) 03/22/18 12:04 APTT 28.1 Sec. (24.2-36.6) 03/22/18 12:04 Sodium 138 mmol/L (137-145) 03/25/18 04:27 Potassium 3.7 mmol/L (3.6-5.0) 03/25/18 04:27 Chloride 103.3 mmol/L (98-107) 03/25/18 04:27 Carbon Dioxide 25 mmol/L (22-30) 03/25/18 04:27 Anion Gap 13 mmol/L 03/25/18 04:27 BUN 20 mg/dL (7-17) H 03/25/18 04:27 Creatinine 0.8 mg/dL (0.7-1.2) 03/25/18 04:27 Estimated GFR > 60 ml/min 03/25/18 04:27 BUN/Creatinine Ratio 25 % 03/25/18 04:27 Glucose 85 mg/dL (65-100) 03/25/18 04:27 POC Glucose 91 (70-105) 03/25/18 17:06 Hemoglobin A1c 10.7 % (4-6) H 03/22/18 16:29 Calcium 8.8 mg/dL (8.4-10.2) 03/25/18 04:27 Total Bilirubin 0.20 mg/dL (0.1-1.2) 03/23/18 06:32 AST 16 units/L (5-40) 03/23/18 06:32 ALT 12 units/L (7-56) 03/23/18 06:32 Alkaline Phosphatase 88 units/L (35-129) 03/23/18 06:32 C-Reactive Protein 7.30 mg/dL (0.00-1.30) H 03/23/18 06:32 Total Protein 7.0 g/dL (6.3-8.2) 03/23/18 06:32 Albumin 2.8 g/dL (3.9-5) L 03/23/18 06:32 Albumin/Globulin Ratio 0.7 % 03/23/18 06:32 Vancomycin Trough 19.9 ug/mL (5.0-20.0) 03/25/18 11:12
[2018-03-26] MEDS: APRESOLINE PO SCH ×3 (05:32→22:35)
[2018-03-26 05:33] LABS: Basophils % (Auto) 0.6 % (0.0-1.8); Eosinophils # (Auto) 0.2 K/mm3 (0.0-0.4); Eosinophils % (Auto) 3.1 % (0.0-4.3); Hemoglobin 8.9 gm/dl (10.1-14.3); Lymphocytes % (Auto) 25.1 % (13.4-35.0); Mean Corpuscular HGB Conc 32 % (30-34); Mean Corpuscular Hemoglobin 26 pg (28-32); Mean Corpuscular Volume 81 fl (79-97); Monocytes # (Auto) 0.7 K/mm3 (0.0-0.8); Monocytes % (Auto) 8.5 % (0.0-7.3); Platelet Count 342 K/mm3 (140-440); Red Blood Count 3.44 M/mm3 (3.65-5.03); Red Cell Distribution Width 16.1 % (13.2-15.2)
[2018-03-26 05:50] LABS: BUN/Creatinine Ratio 19; Blood Urea Nitrogen 17 mg/dL (7-17); Calcium 8.5 mg/dL (8.4-10.2); Hemolysis Index 0
[2018-03-26] MEDS: HumaLOG SUB-Q SCH ×4 (08:34→22:24)
--- NOTE | 2018-03-26 09:22 | Progress Note ---
Assessment and Plan Assessment: 1) Right ankle / foot cellulitis, abscess and osteomyelitis: -Right foot XR showed generalized soft tissue swelling with Charcot joint with numerous subluxation, dislocations, fragmentations and hypertrophic sclerotic changes ? osteomyelitis -CRP=7.3. -US showed acute DVT of the right peroneal vein -MRI showed large abscess in the midfoot 7x5x5 cm, extensive destructive bone changes, fragmentation and dislocation c/w osteomyelitis 2) DM - uncontrolled 3) Previous diabetic left foot ulcer infection Plan: -discussed with Dr Chaves - going to the OR for I+D -hold off IV abx before sueegery to increase cultures yield -needs prolonged IV abx 8 weeks and prob HBO and total contact casting to try to save foot - will discuss with Dr Chaves -PICC -pt w/o insurance will request administration patient assistance program for home IV abx Thank you for your consultation, will follow up with you. Rachna Sultana MD Infectious Diseases Specialist [facility] ([facility]) M [phone] O [phone] Subjective Date of service: 03/26/18 Principal diagnosis: right foot pain/edema Interval history: Feels ok no fever. Microbiology: none Current Antimicrobials: none Previous Antimicrobials: Unasyn Vanco Objective - Exam Narrative Exam: General appearance: Alert in NAD, conversant Eyes: anicteric sclerae, moist conjunctivae; no lid-lag; PERRLA HENT: Atraumatic; oropharynx clear with moist mucous membranes and no mucosal ulcerations/no oral thrush; normal hard and soft palate. Normal external ears. Neck: Trachea midline; supple, no thyromegaly or lymphadenopathy Lungs: CTA, with normal respiratory effort and no intercostal retractions CV: RRR, no murmurs Abdomen: Soft, non-tender; no masses or hepatosplenomegaly Extremities: +marked right foot edema and ankle edema with sole and forefoot erythema. Skin: Normal temperature, turgor and texture; no rash, ulcers or subcutaneous nodules Psych: Appropriate affect, alert and oriented to person, place and time. Neuro: alert and oriented x 3. Moving all extermities Lines: No CVL / PICC - Constitutional Vitals: Vital Signs Temp Pulse Resp BP Pulse Ox 98.8 F 81 20 181/81 93 03/26/18 05:25 03/26/18 05:25 03/26/18 05:25 03/26/18 06:02 03/26/18 05:25 Temperature -Last 24 Hours Temperature 98.8 F Temperature 98.7 F Temperature 99.3 F Temperature 98.9 F - Labs CBC & Chem 7: 03/26/18 04:51 03/26/18 04:51 Labs: Abnormal lab results 03/25/18 03/26/18 03/26/18 Range/Units 11:54 04:51 04:51 RBC 3.44 L (3.65-5.03) M/mm3 Hgb 8.9 L (10.1-14.3) gm/dl Hct 28.0 L (30.3-42.9) % MCH 26 L (28-32) pg RDW 16.1 H (13.2-15.2) % [place] % (Auto) 8.5 H (0.0-7.3) % Sodium 136 L (137-145) mmol/L POC Glucose 116 H (70-105)
[2018-03-26] MEDS: PEPCID PO SCH ×2 (10:08→22:36)
[2018-03-26] MEDS: LOVENOX SUB-Q SCH ×2 (10:08→22:37)
[2018-03-26] MEDS: LOPRESSOR PO SCH ×2 (10:08→22:36)
[2018-03-26] MEDS: COZAAR PO SCH ×2 (10:08→18:06)
[2018-03-26] MEDS: ZESTRIL PO SCH ×2 (10:09→18:06)
[2018-03-26] MEDS ORDERED: DILAUDID IV PRN ×2 (10:21→13:38)
[2018-03-26] MEDS ORDERED: D5NS 1,000 ML IV SCH (11:00)
[2018-03-26] MEDS ORDERED: VERSED IV NR (13:03)
[2018-03-26] MEDS: LACTATED RINGERS 1,000 ML IV SCH (13:18)
--- NOTE | 2018-03-26 13:41 | Anesthesia Consultation ---
Anesthesia Consult and Med Hx Date of service: 03/26/18 - Airway Anesthetic Teeth Evaluation: Good ROM Head & Neck: Adequate Mental/Hyoid Distance: Adequate Mallampati Class: Class II Intubation Access Assessment: Probably Good - Pulmonary Exam CTA: Yes - Cardiac Exam Cardiac Exam: RRR - Pre-Operative Health Status ASA Pre-Surgery Classification: ASA3 Proposed Anesthetic Plan: General - Pulmonary Hx Smoking: No Hx Respiratory Symptoms: No - Cardiovascular System Hx Hypertension: Yes (poorly controlled; no antihypertensives administered today ) Hx Heart Attack/AMI: No - Central Nervous System Hx Seizures: No CVA: No - Gastrointestinal Hx Gastroesophageal Reflux Disease: No - Endocrine Hx Renal Disease: No Hx Liver Disease: No Hx Insulin Dependent Diabetes: Yes (poorly controlled) Hx Thyroid Disease: No - Hematic Hx Anemia: Yes - Other Systems Hx Obesity: Yes - Additional Comments Anesthesia Medical History Comments: PMH poorly controlled HTN, DM with right foot abscess/osteo scheduled for I&D. No prior anesthetic complications.
--- NOTE | 2018-03-26 13:41 | Anesthesia Day of Surgery ---
Anesthesia Day of Surgery - Day of Surgery Patient Examined: Yes Patient H&P Reviewed: Yes Patient is NPO: Yes
[2018-03-26] MEDS ORDERED: DIPRIVAN 10 MG/ML IV ONE (13:50)
[2018-03-26] MEDS ORDERED: XYLOCAINE MPF 2% ONE (13:50)
[2018-03-26] MEDS ORDERED: HEPARIN SUB-Q NR (14:00)
[2018-03-26] MEDS ORDERED: ZOFRAN ONE (14:05)
--- NOTE | 2018-03-26 14:46 | Post Operative Note ---
Pre-op diagnosis: Right foot abscess Post-op diagnosis: same Findings: Serosanguinous fluid within abscess cavity Procedure: I&D, right foot Anesthesia: other (LMA) Surgeon: CARA FOREMAN Estimated blood loss: 50-100ml Pathology: list (C&S) Specimen disposition: to lab Condition: stable Disposition: PACU
[2018-03-26] MEDS: SODIUM CHLORIDE FLUSH SYRINGE 10 ML IV SCH ×2 (18:07→22:38)
[2018-03-26] MEDS: PERCOCET 5/325 PO PRN (19:40)
--- NOTE | 2018-03-26 19:54 | Progress Note ---
Assessment and Plan Assessment and plan: --Right foot abscess s/p I&D Continue wound care, elevate the limb, antibiotics, pain medications --Rt Foot cellulitis; on empiric antibiotics Elevate the limb and follow cultures, foot x-ray ,multiple abnormalitied , consult ortho MRI ; destructive changes , abscess , osteomyelitis New empiric antibiotics, s/p I&D today ID following, Abx held for better cultures yielded --Extremity right DVT; continue Lovenox full dose, elevate the limb, supportive --Hypertensive Urgency/Accelerated HTN Moderate control, continue current antihypertensives and when necessary medications --Type 2 Diabetes; Accu-Chek sliding scale coverage and ADA diet Insulin as needed, hemoglobin A1c --Morbid obesity; BMI 38.2 Advised weight reduction diet modification, exercise as tolerated --Severe malnutrition; Titian supplement and supportive care --DVT prophylaxis; Lovenox Closely monitor the patient and adjust management as needed consults and recommendations noted and appreciated History Interval history: Patient seen and examined medical records reviewed Underwent IND of right foot, Patient complains of mild pain Patient is already on antibiotics Vital signs reviewed Hospitalist Physical - Constitutional Vitals: Temp Pulse Resp BP Pulse Ox 98.4 F 84 20 175/90 97 03/26/18 15:31 03/26/18 18:06 03/26/18 15:31 03/26/18 18:06 03/26/18 15:31 General appearance: Present: no acute distress, well-nourished, obese - EENT Eyes: Present: PERRL, EOM intact - Neck Neck: Present: supple, normal ROM - Respiratory Respiratory effort: normal Respiratory: bilateral: diminished, negative: rales, rhonchi, wheezing - Cardiovascular Rhythm: regular Heart Sounds: Present: S1 & S2 - Extremities Extremities: no ischemia, No edema - Abdominal General gastrointestinal: soft, non-tender, non-distended, normal bowel sounds - Integumentary Integumentary: Present: clear, warm - Psychiatric Psychiatric: appropriate mood/affect, cooperative - Neurologic Neurologic: CNII-XII intact, moves all extremities Results - Labs CBC & Chem 7: 03/26/18 04:51 03/26/18 04:51 Labs: Laboratory Last Values WBC 7.9 K/mm3 (4.5-11.0) 03/26/18 04:51 RBC 3.44 M/mm3 (3.65-5.03) L 03/26/18 04:51 Hgb 8.9 gm/dl (10.1-14.3) L 03/26/18 04:51 Hct 28.0 % (30.3-42.9) L 03/26/18 04:51 MCV 81 fl (79-97) 03/26/18 04:51 MCH 26 pg (28-32) L 03/26/18 04:51 MCHC 32 % (30-34) 03/26/18 04:51 RDW 16.1 % (13.2-15.2) H 03/26/18 04:51 Plt Count 342 K/mm3 (140-440) 03/26/18 04:51 Lymph % (Auto) 25.1 % (13.4-35.0) 03/26/18 04:51 [place] % (Auto) 8.5 % (0.0-7.3) H 03/26/18 04:51 Eos % (Auto) 3.1 % (0.0-4.3) 03/26/18 04:51 Baso % (Auto) 0.6 % (0.0-1.8) 03/26/18 04:51 Lymph # 2.0 K/mm3 (1.2-5.4) 03/26/18 04:51 [place] # 0.7 K/mm3 (0.0-0.8) 03/26/18 04:51 Eos # 0.2 K/mm3 (0.0-0.4) 03/26/18 04:51 Baso # 0.0 K/mm3 (0.0-0.1) 03/26/18 04:51 Seg Neutrophils % 62.7 % (40.0-70.0) 03/26/18 04:51 Seg Neutrophils # 4.9 K/mm3 (1.8-7.7) 03/26/18 04:51 PT 14.9 Sec. (12.2-14.9) 03/22/18 12:04 INR 1.11 (0.87-1.13) 03/22/18 12:04 APTT 28.1 Sec. (24.2-36.6) 03/22/18 12:04 Sodium 136 mmol/L (137-145) L 03/26/18 04:51 Potassium 3.9 mmol/L (3.6-5.0) 03/26/18 04:51 Chloride 99.9 mmol/L (98-107) 03/26/18 04:51 Carbon Dioxide 25 mmol/L (22-30) 03/26/18 04:51 Anion Gap 15 mmol/L 03/26/18 04:51 BUN 17 mg/dL (7-17) 03/26/18 04:51 Creatinine 0.9 mg/dL (0.7-1.2) 03/26/18 04:51 Estimated GFR > 60 ml/min 03/26/18 04:51 BUN/Creatinine Ratio 19 % 03/26/18 04:51 Glucose 100 mg/dL (65-100) 03/26/18 04:51 POC Glucose 123 (70-105) H 03/26/18 17:41 Hemoglobin A1c 10.7 % (4-6) H 03/22/18 16:29 Calcium 8.5 mg/dL (8.4-10.2) 03/26/18 04:51 Magnesium 2.00 mg/dL (1.7-2.3) 03/26/18 04:51 Total Bilirubin 0.20 mg/dL (0.1-1.2) 03/23/18 06:32 AST 16 units/L (5-40) 03/23/18 06:32 ALT 12 units/L (7-56) 03/23/18 06:32 Alkaline Phosphatase 88 units/L (35-129) 03/23/18 06:32 C-Reactive Protein 7.30 mg/dL (0.00-1.30) H 03/23/18 06:32 Total Protein 7.0 g/dL (6.3-8.2) 03/23/18 06:32 Albumin 2.8 g/dL (3.9-5) L 03/23/18 06:32 Albumin/Globulin Ratio 0.7 % 03/23/18 06:32 Vancomycin Trough 19.9 ug/mL (5.0-20.0) 03/25/18 11:12
[2018-03-27] MEDS: APRESOLINE PO SCH ×3 (05:32→23:08)
[2018-03-27] MEDS: LACTATED RINGERS 1,000 ML IV SCH ×2 (05:33→23:10)
[2018-03-27] MEDS: HumaLOG SUB-Q SCH (08:48)
--- NOTE | 2018-03-27 10:20 | Progress Note ---
Assessment and Plan Assessment: 1) Right ankle / foot cellulitis, abscess and osteomyelitis: -Right foot XR showed generalized soft tissue swelling with Charcot joint with numerous subluxation, dislocations, fragmentations and hypertrophic sclerotic changes ? osteomyelitis -CRP=7.3. -US showed acute DVT of the right peroneal vein -MRI showed large abscess in the midfoot 7x5x5 cm, extensive destructive bone changes, fragmentation and dislocation c/w osteomyelitis -S/P OR debridement on 03/26 OR cx pending 2) DM - uncontrolled 3) Previous diabetic left foot ulcer infection Plan: -restart unasyn and vanco -observe during the weekend -f/u OR cultures -needs prolonged IV abx 8 weeks and prob HBO and total contact casting to try to save foot - will discuss with Dr Chaves -PICC -pt w/o insurance will request administration patient assistance program for home IV abx I am rounding on Friday, call me for questions Thank you for your consultation, will follow up with you. Rachna Sultana MD Infectious Diseases Specialist [facility] ([facility]) M [phone] O [phone] Subjective Date of service: 03/27/18 Principal diagnosis: right foot pain/edema Interval history: Feels ok no fever. Microbiology: none Current Antimicrobials: none Previous Antimicrobials: Unasyn Vanco Objective - Exam Narrative Exam: General appearance: Alert in NAD, conversant Eyes: anicteric sclerae, moist conjunctivae; no lid-lag; PERRLA HENT: Atraumatic; oropharynx clear with moist mucous membranes and no mucosal ulcerations/no oral thrush; normal hard and soft palate. Normal external ears. Neck: Trachea midline; supple, no thyromegaly or lymphadenopathy Lungs: CTA, with normal respiratory effort and no intercostal retractions CV: RRR, no murmurs Abdomen: Soft, non-tender; no masses or hepatosplenomegaly Extremities: +marked right foot edema with surgical dressings Skin: Normal temperature, turgor and texture; no rash, ulcers or subcutaneous nodules Psych: Appropriate affect, alert and oriented to person, place and time. Neuro: alert and oriented x 3. Moving all extermities Lines: No CVL / PICC - Constitutional Vitals: Vital Signs Temp Pulse Resp BP Pulse Ox 100.2 F H 92 H 20 144/77 89 03/27/18 05:23 03/27/18 05:32 03/27/18 05:23 03/27/18 05:32 03/27/18 05:23 Temperature -Last 24 Hours Temperature 100.2 F Temperature 98.9 F Temperature 98.4 F Temperature 98.4 F Temperature 99.2 F Temperature 101 F Temperature 98.8 F - Labs CBC & Chem 7: 03/26/18 04:51 03/26/18 04:51 Labs: Abnormal lab results 03/26/18 03/26/18 03/27/18 Range/Units 17:41 21:41 07:49 POC Glucose 123 H 147 H 143 H (70-105)
[2018-03-27] MEDS ORDERED: VANCOMYCIN VIAL 1,000 MG in NACL 0.9% 100 ML IV SCH (11:00)
[2018-03-27] MEDS ORDERED: VANCOMYCIN 2,000 MG in NACL 0.9% 500 ML 500 ML IV ONE (11:30)
[2018-03-27] MEDS: UNASYN/NS 3 GM/100 ML 3 GM/100 ML BAG IV SCH ×3 (12:00→23:08)
--- NOTE | 2018-03-27 13:37 | Progress Note ---
Assessment and Plan Assessment and plan: --Right foot abscess s/p I&D Continue wound care, elevate the limb, antibiotics, pain medications --Rt Foot cellulitis; on empiric antibiotics Elevate the limb and follow cultures, foot x-ray ,multiple abnormalitied , MRI ; destructive changes , abscess , osteomyelitis s/p I&D , continue vancomycin and Unasyn ID following, patient may need 6-8 weeks of antibiotics Follow cultures and sensitivities --Extremity right DVT; continue Lovenox full dose, elevate the limb, supportive May switch to oral anticoagulants when stable --Hypertensive Urgency/Accelerated HTN Moderate control, continue current antihypertensives and when necessary medications --Type 2 Diabetes; Accu-Chek sliding scale coverage and ADA diet Insulin as needed, hemoglobin A1c --Morbid obesity; BMI 38.2 Advised weight reduction diet modification, exercise as tolerated --Severe malnutrition; Titian supplement and supportive care --DVT prophylaxis; Lovenox Closely monitor the patient and adjust management as needed consults and recommendations noted and appreciated History Interval history: Patient seen and examined medical records reviewed Patient feels better no new complaints Alert awake oriented 3 Vital signs reviewed Hospitalist Physical - Constitutional Vitals: Temp Pulse Resp BP Pulse Ox 100.1 F H 92 H 19 138/63 89 03/27/18 12:12 03/27/18 05:32 03/27/18 12:12 03/27/18 12:12 03/27/18 05:23 General appearance: Present: no acute distress, well-nourished, obese (morbidly obese) - EENT Eyes: Present: PERRL, EOM intact - Neck Neck: Present: supple, normal ROM - Respiratory Respiratory effort: normal Respiratory: negative: rales, rhonchi, wheezing - Cardiovascular Rhythm: regular Heart Sounds: Present: S1 & S2 - Extremities Extremities: abnormal (right foot wound/dressing in place) Extremity abnormal: edema - Abdominal General gastrointestinal: soft, non-tender, non-distended, normal bowel sounds - Integumentary Integumentary: Present: clear, warm - Psychiatric Psychiatric: appropriate mood/affect, cooperative - Neurologic Neurologic: CNII-XII intact, moves all extremities Results - Labs CBC & Chem 7: 03/26/18 04:51 03/26/18 04:51 Labs: Laboratory Last Values WBC 7.9 K/mm3 (4.5-11.0) 03/26/18 04:51 RBC 3.44 M/mm3 (3.65-5.03) L 03/26/18 04:51 Hgb 8.9 gm/dl (10.1-14.3) L 03/26/18 04:51 Hct 28.0 % (30.3-42.9) L 03/26/18 04:51 MCV 81 fl (79-97) 03/26/18 04:51 MCH 26 pg (28-32) L 03/26/18 04:51 MCHC 32 % (30-34) 03/26/18 04:51 RDW 16.1 % (13.2-15.2) H 03/26/18 04:51 Plt Count 342 K/mm3 (140-440) 03/26/18 04:51 Lymph % (Auto) 25.1 % (13.4-35.0) 03/26/18 04:51 [place] % (Auto) 8.5 % (0.0-7.3) H 03/26/18 04:51 Eos % (Auto) 3.1 % (0.0-4.3) 03/26/18 04:51 Baso % (Auto) 0.6 % (0.0-1.8) 03/26/18 04:51 Lymph # 2.0 K/mm3 (1.2-5.4) 03/26/18 04:51 [place] # 0.7 K/mm3 (0.0-0.8) 03/26/18 04:51 Eos # 0.2 K/mm3 (0.0-0.4) 03/26/18 04:51 Baso # 0.0 K/mm3 (0.0-0.1) 03/26/18 04:51 Seg Neutrophils % 62.7 % (40.0-70.0) 03/26/18 04:51 Seg Neutrophils # 4.9 K/mm3 (1.8-7.7) 03/26/18 04:51 PT 14.9 Sec. (12.2-14.9) 03/22/18 12:04 INR 1.11 (0.87-1.13) 03/22/18 12:04 APTT 28.1 Sec. (24.2-36.6) 03/22/18 12:04 Sodium 136 mmol/L (137-145) L 03/26/18 04:51 Potassium 3.9 mmol/L (3.6-5.0) 03/26/18 04:51 Chloride 99.9 mmol/L (98-107) 03/26/18 04:51 Carbon Dioxide 25 mmol/L (22-30) 03/26/18 04:51 Anion Gap 15 mmol/L 03/26/18 04:51 BUN 17 mg/dL (7-17) 03/26/18 04:51 Creatinine 0.9 mg/dL (0.7-1.2) 03/26/18 04:51 Estimated GFR > 60 ml/min 03/26/18 04:51 BUN/Creatinine Ratio 19 % 03/26/18 04:51 Glucose 100 mg/dL (65-100) 03/26/18 04:51 POC Glucose 122 (70-105) H 03/27/18 12:18 Hemoglobin A1c 10.7 % (4-6) H 03/22/18 16:29 Calcium 8.5 mg/dL (8.4-10.2) 03/26/18 04:51 Magnesium 2.00 mg/dL (1.7-2.3) 03/26/18 04:51 Total Bilirubin 0.20 mg/dL (0.1-1.2) 03/23/18 06:32 AST 16 units/L (5-40) 03/23/18 06:32 ALT 12 units/L (7-56) 03/23/18 06:32 Alkaline Phosphatase 88 units/L (35-129) 03/23/18 06:32 C-Reactive Protein 7.30 mg/dL (0.00-1.30) H 03/23/18 06:32 Total Protein 7.0 g/dL (6.3-8.2) 03/23/18 06:32 Albumin 2.8 g/dL (3.9-5) L 03/23/18 06:32 Albumin/Globulin Ratio 0.7 % 03/23/18 06:32 Vancomycin Trough 19.9 ug/mL (5.0-20.0) 03/25/18 11:12
[2018-03-27] MEDS: LOVENOX SUB-Q SCH ×2 (13:45→23:08)
[2018-03-27] MEDS: PERCOCET 5/325 PO PRN (13:46)
[2018-03-27] MEDS: PEPCID PO SCH ×2 (13:46→23:09)
[2018-03-27] MEDS: LOPRESSOR PO SCH ×2 (13:47→23:09)
[2018-03-27] MEDS: ZESTRIL PO SCH (13:48)
[2018-03-27] MEDS: SODIUM CHLORIDE FLUSH SYRINGE 10 ML IV SCH (13:48)
[2018-03-27] MEDS: VANCOMYCIN 1,500 MG in NACL 0.9% 500 ML 500 ML IV SCH (23:07)
[2018-03-28] MEDS: HumaLOG SUB-Q SCH ×6 (00:01→23:06)
[2018-03-28] MEDS: SODIUM CHLORIDE FLUSH SYRINGE 10 ML IV SCH ×3 (00:38→22:51)
[2018-03-28] MEDS: COZAAR PO SCH ×2 (03:02→09:30)
[2018-03-28 05:50] LABS: Hematocrit 27.6 % (30.3-42.9); Mean Corpuscular HGB Conc 33 % (30-34); Mean Corpuscular Hemoglobin 26 pg (28-32); Mean Corpuscular Volume 81 fl (79-97); Platelet Count 354 K/mm3 (140-440)
[2018-03-28] MEDS: UNASYN/NS 3 GM/100 ML 3 GM/100 ML BAG IV SCH ×4 (05:58→23:55)
[2018-03-28] MEDS: APRESOLINE PO SCH ×3 (05:59→22:51)
[2018-03-28] MEDS: LOPRESSOR PO SCH ×2 (09:31→22:51)
[2018-03-28] MEDS: ZESTRIL PO SCH (09:31)
[2018-03-28] MEDS: LOVENOX SUB-Q SCH ×2 (09:31→22:47)
[2018-03-28] MEDS: PEPCID PO SCH ×2 (09:33→22:49)
--- NOTE | 2018-03-28 10:11 | Progress Note ---
Assessment and Plan - Patient Problems (1) Acute pain of right lower extremity Current Visit: Yes Status: Acute (2) Abscess of right foot Current Visit: Yes Status: Acute Plan to address problem: 1) Wound care consult 2) No weight bearing, right foot 3) IV antibiotics per ID Subjective Date of service: 03/28/18 Patient Reports: Positive: no new complaints Objective Vital Signs - 12hr 03/27/18 03/27/18 03/27/18 23:08 23:09 23:28 Temperature 99.6 F Pulse Rate 80 80 82 Respiratory 20 Rate Blood Pressure 128/80 128/80 142/71 O2 Sat by Pulse 95 Oximetry 03/27/18 03/28/18 03/28/18 23:29 00:11 05:16 Temperature 99.6 F 99.2 F Pulse Rate 82 81 Respiratory 20 20 Rate Blood Pressure 142/71 174/92 O2 Sat by Pulse 93 94 Oximetry 03/28/18 03/28/18 03/28/18 05:17 05:59 06:59 Temperature Pulse Rate 82 81 Respiratory 20 20 Rate Blood Pressure 174/92 O2 Sat by Pulse 95 Oximetry 03/28/18 03/28/18 09:30 09:31 Temperature Pulse Rate Respiratory Rate Blood Pressure 174/92 174/92 O2 Sat by Pulse Oximetry - Musculoskeletal other (Wound packing removed. No bleeding. Wound is clean.) - Labs 03/28/18 04:43 03/26/18 04:51 - Imaging Additional Studies: C&S - No growth at 48 hrs
--- NOTE | 2018-03-28 11:12 | Progress Note ---
Assessment and Plan Assessment and plan: --Right foot abscess s/p I&D Continue wound care, elevate the limb, antibiotics, pain medications --Rt Foot cellulitis; on empiric antibiotics Elevate the limb. Continue antibiotics, follow cultures, foot x-ray ,multiple abnormalitied , MRI ; destructive changes , abscess , osteomyelitis s/p I&D , ID following, patient may need 6-8 weeks of antibiotics Wound Care surgeon Dr. Andersen is following, is constricted --Rt. LowerExtremity DVT; continue Lovenox full dose, elevate the limb, supportive May switch to oral anticoagulants when patient is stable --Hypertensive Urgency/Accelerated HTN Moderate control, continue current antihypertensives and when necessary medications --Type 2 Diabetes; Accu-Chek sliding scale coverage and ADA diet Insulin as needed, hemoglobin A1c 10.7 --Morbid obesity; BMI at 41.6 Advised weight reduction diet modification, exercise as tolerated --Severe malnutrition; nutrition supplement and supportive care --DVT prophylaxis; Lovenox Closely monitor the patient and adjust management as needed consults and recommendations noted and appreciated. Plan of care is reviewed with the patient and the family member at the bedside History Interval history: Patient seen and examined medical records reviewed No new events reported by the nursing staff Patient had some copious discharge from the right foot wound Wound care change the dressing Patient has no new complaints Vital signs reviewed Wound Care surgeon Dr. Andersen discussed about possible amputation of right foot in view of Right foot osteomyelitis, patient is concerned and upset Hospitalist Physical - Constitutional Vitals: Temp Pulse Resp BP Pulse Ox 99.2 F 81 20 174/92 95 03/28/18 05:16 03/28/18 05:59 03/28/18 06:59 03/28/18 09:31 03/28/18 05:17 General appearance: Present: no acute distress, well-nourished, obese - EENT Eyes: Present: PERRL, EOM intact - Neck Neck: Present: supple, normal ROM - Respiratory Respiratory effort: normal Respiratory: bilateral: diminished, negative: rales, rhonchi, wheezing - Cardiovascular Rhythm: regular Heart Sounds: Present: S1 & S2 - Extremities Extremities: abnormal (right foot dressing intact) Extremity abnormal: edema - Abdominal General gastrointestinal: soft, non-tender, non-distended, normal bowel sounds - Integumentary Integumentary: Present: clear, warm - Psychiatric Psychiatric: appropriate mood/affect, cooperative - Neurologic Neurologic: CNII-XII intact, moves all extremities Results - Labs CBC & Chem 7: 03/28/18 04:43 03/26/18 04:51 Labs: Laboratory Last Values WBC 9.0 K/mm3 (4.5-11.0) 03/28/18 04:43 RBC 3.40 M/mm3 (3.65-5.03) L 03/28/18 04:43 Hgb 9.0 gm/dl (10.1-14.3) L 03/28/18 04:43 Hct 27.6 % (30.3-42.9) L 03/28/18 04:43 MCV 81 fl (79-97) 03/28/18 04:43 MCH 26 pg (28-32) L 03/28/18 04:43 MCHC 33 % (30-34) 03/28/18 04:43 RDW 16.0 % (13.2-15.2) H 03/28/18 04:43 Plt Count 354 K/mm3 (140-440) 03/28/18 04:43 Lymph % (Auto) 25.1 % (13.4-35.0) 03/26/18 04:51 [place] % (Auto) 8.5 % (0.0-7.3) H 03/26/18 04:51 Eos % (Auto) 3.1 % (0.0-4.3) 03/26/18 04:51 Baso % (Auto) 0.6 % (0.0-1.8) 03/26/18 04:51 Lymph # 2.0 K/mm3 (1.2-5.4) 03/26/18 04:51 [place] # 0.7 K/mm3 (0.0-0.8) 03/26/18 04:51 Eos # 0.2 K/mm3 (0.0-0.4) 03/26/18 04:51 Baso # 0.0 K/mm3 (0.0-0.1) 03/26/18 04:51 Seg Neutrophils % 62.7 % (40.0-70.0) 03/26/18 04:51 Seg Neutrophils # 4.9 K/mm3 (1.8-7.7) 03/26/18 04:51 PT 14.9 Sec. (12.2-14.9) 03/22/18 12:04 INR 1.11 (0.87-1.13) 03/22/18 12:04 APTT 28.1 Sec. (24.2-36.6) 03/22/18 12:04 Sodium 136 mmol/L (137-145) L 03/26/18 04:51 Potassium 3.9 mmol/L (3.6-5.0) 03/26/18 04:51 Chloride 99.9 mmol/L (98-107) 03/26/18 04:51 Carbon Dioxide 25 mmol/L (22-30) 03/26/18 04:51 Anion Gap 15 mmol/L 03/26/18 04:51 BUN 17 mg/dL (7-17) 03/26/18 04:51 Creatinine 0.9 mg/dL (0.7-1.2) 03/26/18 04:51 Estimated GFR > 60 ml/min 03/26/18 04:51 BUN/Creatinine Ratio 19 % 03/26/18 04:51 Glucose 100 mg/dL (65-100) 03/26/18 04:51 POC Glucose 110 (70-105) H 03/28/18 09:04 Hemoglobin A1c 10.7 % (4-6) H 03/22/18 16:29 Calcium 8.5 mg/dL (8.4-10.2) 03/26/18 04:51 Magnesium 2.00 mg/dL (1.7-2.3) 03/26/18 04:51 Total Bilirubin 0.20 mg/dL (0.1-1.2) 03/23/18 06:32 AST 16 units/L (5-40) 03/23/18 06:32 ALT 12 units/L (7-56) 03/23/18 06:32 Alkaline Phosphatase 88 units/L (35-129) 03/23/18 06:32 C-Reactive Protein 7.30 mg/dL (0.00-1.30) H 03/23/18 06:32 Total Protein 7.0 g/dL (6.3-8.2) 03/23/18 06:32 Albumin 2.8 g/dL (3.9-5) L 03/23/18 06:32 Albumin/Globulin Ratio 0.7 % 03/23/18 06:32 Vancomycin Trough 19.9 ug/mL (5.0-20.0) 03/25/18 11:12 Plasma/Serum Alcohol < 0.01 % (0-0.07) 03/27/18 13:59
[2018-03-28] MEDS: VANCOMYCIN 1,500 MG in NACL 0.9% 500 ML 500 ML IV SCH (12:59)
[2018-03-28] MEDS: PERCOCET 5/325 PO PRN (22:49)
[2018-03-28] MEDS: LACTATED RINGERS 1,000 ML IV SCH (22:57)
[2018-03-29] MEDS: VANCOMYCIN 1,500 MG in NACL 0.9% 500 ML 500 ML IV SCH ×2 (01:55→14:19)
[2018-03-29 04:57] LABS: Basophils # (Auto) 0.1 K/mm3 (0.0-0.1); Basophils % (Auto) 0.5 % (0.0-1.8); Eosinophils # (Auto) 0.1 K/mm3 (0.0-0.4); Eosinophils % (Auto) 0.7 % (0.0-4.3); Hematocrit 29.1 % (30.3-42.9); Hemoglobin 9.3 gm/dl (10.1-14.3); Lymphocytes # (Auto) 2.4 K/mm3 (1.2-5.4); Lymphocytes % (Auto) 22.2 % (13.4-35.0); Mean Corpuscular HGB Conc 32 % (30-34); Mean Corpuscular Hemoglobin 26 pg (28-32); Mean Corpuscular Volume 81 fl (79-97); Monocytes # (Auto) 1.2 K/mm3 (0.0-0.8); Monocytes % (Auto) 11.3 % (0.0-7.3); Platelet Count 420 K/mm3 (140-440); Red Blood Count 3.59 M/mm3 (3.65-5.03); Red Cell Distribution Width 16.3 % (13.2-15.2)
[2018-03-29 05:17] LABS: BUN/Creatinine Ratio 22; Blood Urea Nitrogen 20 mg/dL (7-17); Calcium 8.2 mg/dL (8.4-10.2); Hemolysis Index 36
[2018-03-29] MEDS: UNASYN/NS 3 GM/100 ML 3 GM/100 ML BAG IV SCH ×4 (05:31→23:17)
[2018-03-29] MEDS: APRESOLINE PO SCH ×3 (05:32→23:09)
[2018-03-29] MEDS: HumaLOG SUB-Q SCH ×4 (07:30→22:00)
[2018-03-29] MEDS: SODIUM CHLORIDE FLUSH SYRINGE 10 ML IV SCH ×2 (10:02→23:08)
[2018-03-29] MEDS: LOPRESSOR PO SCH ×2 (14:12→23:10)
[2018-03-29] MEDS: ZESTRIL PO SCH (14:12)
[2018-03-29] MEDS: COZAAR PO SCH (14:13)
[2018-03-29] MEDS: LOVENOX SUB-Q SCH ×2 (14:15→23:10)
[2018-03-29] MEDS: PEPCID PO SCH ×2 (14:19→23:09)
--- NOTE | 2018-03-29 14:42 | Progress Note ---
Assessment and Plan Assessment and plan: Patient is a 52 yo woman with a history of hypertension, dyslipidemia and NIDDM who presented with right leg pains and swelling * 03/22/18 VASCULAR LAB.PRELIMINARY REPORT. RLE VENOUS DUPLEX DONE. EVIDENCE OF ACUTE DVT IN THE RT.PERONEAL VEIN AT MID CALF. INFORMED AT 1119. * MRI right leg thickening. No air collections are identified. IMPRESSION: Destructive changes in the midfoot with fragmentation of bones and dislocations. The central fluid collection at the junction of the midfoot and hindfoot is consistent with abscess and marrow changes and enhancement are consistent with osteomyelitis. -Right foot abscess s/p I&D/ excisional debridement: Continue wound care, elevate the limb, antibiotics, pain medications -Rt Foot cellulitis; on empiric antibiotics, Elevate the limb. Continue antibiotics, follow cultures, foot x-ray ,multiple abnormalitied , -Right foot osteomyelitis: General Surgeon, Dr. Chaves is following, most likely amputation this week -Right leg Acute DVT; continue Lovenox full dose, elevate the limb, supportive, May switch to oral anticoagulants when patient is stable and no more surgeries -Hypertensive Urgency/Accelerated HTN: Moderate control, continue current antihypertensives and when necessary medications -Type 2 Diabetes; Accu-Chek sliding scale coverage and ADA diet, Insulin as needed, hemoglobin A1c 10.7 -Morbid obesity; BMI at 42.8: Advised weight reduction diet modification, exercise as tolerated -Severe malnutrition; nutrition supplement and supportive care -DVT prophylaxis; Lovenox Closely monitor the patient and adjust management as needed consults and recommendations noted and appreciated. Plan of care is reviewed with the patient and the family member at the bedside History Interval history: Patient was seen and examined. Follow-up on current diagnosis of right foot infection. Overnight uneventful. Patient denies any chest pain, shortness breath , nausea/vomiting or severe headaches. Imaging, nursing note, chart, labs and old chart reviewed. Discussed with patient. Hospitalist Physical - Physical exam Narrative exam: GEN: WDWN, NAD, Awake, Alert, Orientated x 3, morbid obese bmi 42.8 HEENT: NCAT, EOMI, PERRL, OP Clear NECK: supple, no adenopathy, no thyromegaly, no JVD CVS/HEART: RRR, normal S1S2, pulses present bilaterally CHEST/LUNGS: CTA B, Symmetrical chest expansion, good air entry bilaterally GI/Abdomen: soft, NTND, good bowel sounds, no guarding or rebound /Bladder: no suprapubic tenderness, no CVA or paraspinal tenderness EXT/Skin: right foot dsg is saturated with old blood, alerted the nurse MSK: FROM x 4 Neuro: CN 2-12 grossly intact, no new focal deficits Psych: calm - Constitutional Vitals: Temp Pulse Resp BP Pulse Ox 99.4 F 86 20 141/70 93 03/29/18 13:25 03/29/18 13:25 03/29/18 13:25 03/29/18 14:16 03/29/18 13:25 General appearance: Present: no acute distress, well-nourished Results - Labs CBC & Chem 7: 03/29/18 04:25 03/29/18 04:25 Labs: Laboratory Last Values WBC 10.9 K/mm3 (4.5-11.0) 03/29/18 04:25 RBC 3.59 M/mm3 (3.65-5.03) L 03/29/18 04:25 Hgb 9.3 gm/dl (10.1-14.3) L 03/29/18 04:25 Hct 29.1 % (30.3-42.9) L 03/29/18 04:25 MCV 81 fl (79-97) 03/29/18 04:25 MCH 26 pg (28-32) L 03/29/18 04:25 MCHC 32 % (30-34) 03/29/18 04:25 RDW 16.3 % (13.2-15.2) H 03/29/18 04:25 Plt Count 420 K/mm3 (140-440) 03/29/18 04:25 Lymph % (Auto) 22.2 % (13.4-35.0) 03/29/18 04:25 [place] % (Auto) 11.3 % (0.0-7.3) H 03/29/18 04:25 Eos % (Auto) 0.7 % (0.0-4.3) 03/29/18 04:25 Baso % (Auto) 0.5 % (0.0-1.8) 03/29/18 04:25 Lymph # 2.4 K/mm3 (1.2-5.4) 03/29/18 04:25 [place] # 1.2 K/mm3 (0.0-0.8) H 03/29/18 04:25 Eos # 0.1 K/mm3 (0.0-0.4) 03/29/18 04:25 Baso # 0.1 K/mm3 (0.0-0.1) 03/29/18 04:25 Seg Neutrophils % 65.3 % (40.0-70.0) 03/29/18 04:25 Seg Neutrophils # 7.1 K/mm3 (1.8-7.7) 03/29/18 04:25 PT 14.9 Sec. (12.2-14.9) 03/22/18 12:04 INR 1.11 (0.87-1.13) 03/22/18 12:04 APTT 28.1 Sec. (24.2-36.6) 03/22/18 12:04 Sodium 134 mmol/L (137-145) L 03/29/18 04:25 Potassium 4.3 mmol/L (3.6-5.0) 03/29/18 04:25 Chloride 97.8 mmol/L (98-107) L 03/29/18 04:25 Carbon Dioxide 23 mmol/L (22-30) 03/29/18 04:25 Anion Gap 18 mmol/L 03/29/18 04:25 BUN 20 mg/dL (7-17) H 03/29/18 04:25 Creatinine 0.9 mg/dL (0.7-1.2) 03/29/18 04:25 Estimated GFR > 60 ml/min 03/29/18 04:25 BUN/Creatinine Ratio 22 % 03/29/18 04:25 Glucose 143 mg/dL (65-100) H 03/29/18 04:25 POC Glucose 147 (70-105) H 03/29/18 12:13 Hemoglobin A1c 10.7 % (4-6) H 03/22/18 16:29 Calcium 8.2 mg/dL (8.4-10.2) L 03/29/18 04:25 Magnesium 2.00 mg/dL (1.7-2.3) 03/26/18 04:51 Total Bilirubin 0.20 mg/dL (0.1-1.2) 03/23/18 06:32 AST 16 units/L (5-40) 03/23/18 06:32 ALT 12 units/L (7-56) 03/23/18 06:32 Alkaline Phosphatase 88 units/L (35-129) 03/23/18 06:32 C-Reactive Protein 7.30 mg/dL (0.00-1.30) H 03/23/18 06:32 Total Protein 7.0 g/dL (6.3-8.2) 03/23/18 06:32 Albumin 2.8 g/dL (3.9-5) L 03/23/18 06:32 Albumin/Globulin Ratio 0.7 % 03/23/18 06:32 Vancomycin Trough 19.9 ug/mL (5.0-20.0) 03/25/18 11:12 Plasma/Serum Alcohol < 0.01 % (0-0.07) 03/27/18 13:59
[2018-03-30] MEDS: VANCOMYCIN 1,500 MG in NACL 0.9% 500 ML 500 ML IV SCH ×2 (00:37→14:39)
[2018-03-30] MEDS: UNASYN/NS 3 GM/100 ML 3 GM/100 ML BAG IV SCH ×3 (05:39→18:45)
[2018-03-30] MEDS: APRESOLINE PO SCH ×2 (06:08→14:39)
[2018-03-30] MEDS: HumaLOG SUB-Q SCH ×3 (08:00→18:58)
[2018-03-30] MEDS: SODIUM CHLORIDE FLUSH SYRINGE 10 ML IV SCH (10:00)
--- NOTE | 2018-03-30 11:36 | Progress Note ---
Assessment and Plan Assessment and plan: Patient is a 52 yo woman with a history of hypertension, dyslipidemia and NIDDM who presented with right leg pains and swelling * 03/22/18 VASCULAR LAB.PRELIMINARY REPORT. RLE VENOUS DUPLEX DONE. EVIDENCE OF ACUTE DVT IN THE RT.PERONEAL VEIN AT MID CALF. INFORMED AT 1119. * MRI right leg thickening. No air collections are identified. IMPRESSION: Destructive changes in the midfoot with fragmentation of bones and dislocations. The central fluid collection at the junction of the midfoot and hindfoot is consistent with abscess and marrow changes and enhancement are consistent with osteomyelitis. -Right foot abscess s/p I&D/ excisional debridement: Continue wound care, elevate the limb, antibiotics, pain medications -Rt Foot cellulitis; on empiric antibiotics, Elevate the limb. Continue antibiotics, follow cultures, foot x-ray ,multiple abnormalitied , -Right foot osteomyelitis: General Surgeon, Dr. Chaves is following, most likely amputation this week -Right leg Acute DVT; continue Lovenox full dose, elevate the limb, supportive, May switch to oral anticoagulants when patient is stable and no more surgeries -Hypertensive Urgency/Accelerated HTN: Moderate control, continue current antihypertensives and when necessary medications -Type 2 Diabetes; Accu-Chek sliding scale coverage and ADA diet, Insulin as needed, hemoglobin A1c 10.7 -Morbid obesity; BMI at 42.8: Advised weight reduction diet modification, exercise as tolerated -Severe malnutrition; nutrition supplement and supportive care -DVT prophylaxis; Lovenox d/w Dr. Chaves and he recommends wound care, ID to manage ABx, ABsolutely no weight bearing at least 4 weeks, no surgery/amputation per patient's choice. So , now we need to work on home IV per ID recommendation, which is difficult without insurance. History Interval history: Patient was seen and examined. Follow-up on current diagnosis of right foot infection. Overnight uneventful. Patient denies any chest pain, shortness breath , nausea/vomiting or severe headaches. Imaging, nursing note, chart, labs and old chart reviewed. Discussed with patient. Hospitalist Physical - Physical exam Narrative exam: GEN: WDWN, NAD, Awake, Alert, Orientated x 3, morbid obese bmi 42.8 HEENT: NCAT, EOMI, PERRL, OP Clear NECK: supple, no adenopathy, no thyromegaly, no JVD CVS/HEART: RRR, normal S1S2, pulses present bilaterally CHEST/LUNGS: CTA B, Symmetrical chest expansion, good air entry bilaterally GI/Abdomen: soft, NTND, good bowel sounds, no guarding or rebound /Bladder: no suprapubic tenderness, no CVA or paraspinal tenderness EXT/Skin: right foot dsg is saturated with old blood, alerted the nurse MSK: FROM x 4 Neuro: CN 2-12 grossly intact, no new focal deficits Psych: calm - Constitutional Vitals: Temp Pulse Resp BP Pulse Ox 98.0 F 69 16 173/86 94 03/30/18 05:49 03/30/18 06:08 03/30/18 05:49 03/30/18 06:08 03/30/18 05:49 General appearance: Present: no acute distress, well-nourished Results - Labs CBC & Chem 7: 03/29/18 04:25 03/29/18 04:25 Labs: Laboratory Last Values WBC 10.9 K/mm3 (4.5-11.0) 03/29/18 04:25 RBC 3.59 M/mm3 (3.65-5.03) L 03/29/18 04:25 Hgb 9.3 gm/dl (10.1-14.3) L 03/29/18 04:25 Hct 29.1 % (30.3-42.9) L 03/29/18 04:25 MCV 81 fl (79-97) 03/29/18 04:25 MCH 26 pg (28-32) L 03/29/18 04:25 MCHC 32 % (30-34) 03/29/18 04:25 RDW 16.3 % (13.2-15.2) H 03/29/18 04:25 Plt Count 420 K/mm3 (140-440) 03/29/18 04:25 Lymph % (Auto) 22.2 % (13.4-35.0) 03/29/18 04:25 [place] % (Auto) 11.3 % (0.0-7.3) H 03/29/18 04:25 Eos % (Auto) 0.7 % (0.0-4.3) 03/29/18 04:25 Baso % (Auto) 0.5 % (0.0-1.8) 03/29/18 04:25 Lymph # 2.4 K/mm3 (1.2-5.4) 03/29/18 04:25 [place] # 1.2 K/mm3 (0.0-0.8) H 03/29/18 04:25 Eos # 0.1 K/mm3 (0.0-0.4) 03/29/18 04:25 Baso # 0.1 K/mm3 (0.0-0.1) 03/29/18 04:25 Seg Neutrophils % 65.3 % (40.0-70.0) 03/29/18 04:25 Seg Neutrophils # 7.1 K/mm3 (1.8-7.7) 03/29/18 04:25 PT 14.9 Sec. (12.2-14.9) 03/22/18 12:04 INR 1.11 (0.87-1.13) 03/22/18 12:04 APTT 28.1 Sec. (24.2-36.6) 03/22/18 12:04 Sodium 134 mmol/L (137-145) L 03/29/18 04:25 Potassium 4.3 mmol/L (3.6-5.0) 03/29/18 04:25 Chloride 97.8 mmol/L (98-107) L 03/29/18 04:25 Carbon Dioxide 23 mmol/L (22-30) 03/29/18 04:25 Anion Gap 18 mmol/L 03/29/18 04:25 BUN 20 mg/dL (7-17) H 03/29/18 04:25 Creatinine 0.9 mg/dL (0.7-1.2) 03/29/18 04:25 Estimated GFR > 60 ml/min 03/29/18 04:25 BUN/Creatinine Ratio 22 % 03/29/18 04:25 Glucose 143 mg/dL (65-100) H 03/29/18 04:25 POC Glucose 96 (70-105) 03/30/18 08:34 Hemoglobin A1c 10.7 % (4-6) H 03/22/18 16:29 Calcium 8.2 mg/dL (8.4-10.2) L 03/29/18 04:25 Magnesium 2.00 mg/dL (1.7-2.3) 03/26/18 04:51 Total Bilirubin 0.20 mg/dL (0.1-1.2) 03/23/18 06:32 AST 16 units/L (5-40) 03/23/18 06:32 ALT 12 units/L (7-56) 03/23/18 06:32 Alkaline Phosphatase 88 units/L (35-129) 03/23/18 06:32 C-Reactive Protein 7.30 mg/dL (0.00-1.30) H 03/23/18 06:32 Total Protein 7.0 g/dL (6.3-8.2) 03/23/18 06:32 Albumin 2.8 g/dL (3.9-5) L 03/23/18 06:32 Albumin/Globulin Ratio 0.7 % 03/23/18 06:32 Vancomycin Trough 19.9 ug/mL (5.0-20.0) 03/25/18 11:12 Plasma/Serum Alcohol < 0.01 % (0-0.07) 03/27/18 13:59
[2018-03-30] MEDS: ZESTRIL PO SCH (11:57)
[2018-03-30] MEDS: COZAAR PO SCH (11:57)
[2018-03-30] MEDS: PEPCID PO SCH (11:58)
[2018-03-30] MEDS: LOVENOX SUB-Q SCH (11:58)
[2018-03-30] MEDS ORDERED: DULCOLAX PR ONE (12:00)
[2018-03-30] MEDS: LOPRESSOR PO SCH (12:10)
--- NOTE | 2018-03-30 13:17 | Progress Note ---
Assessment and Plan Assessment: 1) Right ankle / foot cellulitis, abscess and osteomyelitis: -Right foot XR showed generalized soft tissue swelling with Charcot joint with numerous subluxation, dislocations, fragmentations and hypertrophic sclerotic changes ? osteomyelitis -CRP=7.3. -US showed acute DVT of the right peroneal vein -MRI showed large abscess in the midfoot 7x5x5 cm, extensive destructive bone changes, fragmentation and dislocation c/w osteomyelitis -S/P OR debridement on 03/26 OR cx no growth 2) DM - uncontrolled 3) Previous diabetic left foot ulcer infection Plan: -patient considering amputation, she already discussed with family, I spoke with Dr Chaves to discuss w patient -continue unasyn and vanco -f/u OR cultures which are not growing -if not amputation she will require prolonged IV abx for 8 weeks, HBO and total contact casting to try to save foot -pt w/o insurance will request administration patient assistance program for home IV abx Discussed with Dr Chaves over the phone Thank you for your consultation, will follow up with you. Rachna Sultana MD Infectious Diseases Specialist [facility] ([facility]) M [phone] O [phone] Subjective Date of service: 03/30/18 Principal diagnosis: right foot pain/edema Interval history: Feels ok no fever. Considering amputation. Microbiology: 03/26 ngtd Current Antimicrobials: Unasyn Vanco Previous Antimicrobials: Objective - Exam Narrative Exam: General appearance: Alert in NAD, conversant Eyes: anicteric sclerae, moist conjunctivae; no lid-lag; PERRLA HENT: Atraumatic; oropharynx clear with moist mucous membranes and no mucosal ulcerations/no oral thrush; normal hard and soft palate. Normal external ears. Neck: Trachea midline; supple, no thyromegaly or lymphadenopathy Lungs: CTA, with normal respiratory effort and no intercostal retractions CV: RRR, no murmurs Abdomen: Soft, non-tender; no masses or hepatosplenomegaly Extremities: +decreased marked right foot edema with surgical dressings Skin: Normal temperature, turgor and texture; no rash, ulcers or subcutaneous nodules Psych: Appropriate affect, alert and oriented to person, place and time. Neuro: alert and oriented x 3. Moving all extermities Lines: No CVL / PICC - Constitutional Vitals: Vital Signs Temp Pulse Resp BP Pulse Ox 97.8 F 77 20 164/77 96 03/30/18 12:10 03/30/18 12:10 03/30/18 12:10 03/30/18 12:10 03/30/18 12:10 Temperature -Last 24 Hours Temperature 97.8 F Temperature 98.0 F Temperature 99.1 F Temperature 99.1 F Temperature 99.2 F Temperature 99.4 F - Labs CBC & Chem 7: 03/29/18 04:25 03/29/18 04:25 Labs: Abnormal lab results 03/29/18 03/29/18 03/30/18 Range/Units 17:01 21:17 11:52 POC Glucose 158 H 140 H 140 H (70-105)
[2018-03-31] MEDS: PEPCID PO SCH ×3 (01:31→23:47)
[2018-03-31] MEDS: LOPRESSOR PO SCH ×3 (01:32→23:45)
[2018-03-31] MEDS: APRESOLINE PO SCH ×2 (01:33→23:46)
[2018-03-31] MEDS: LOVENOX SUB-Q SCH ×3 (01:35→23:45)
[2018-03-31] MEDS: HumaLOG SUB-Q SCH ×5 (01:36→23:46)
[2018-03-31] MEDS: SODIUM CHLORIDE FLUSH SYRINGE 10 ML IV SCH ×2 (01:40→10:30)
[2018-03-31] MEDS: UNASYN/NS 3 GM/100 ML 3 GM/100 ML BAG IV SCH ×3 (04:13→22:10)
[2018-03-31] MEDS: LACTATED RINGERS 1,000 ML IV SCH ×2 (04:17→23:47)
[2018-03-31] MEDS: VANCOMYCIN 1,500 MG in NACL 0.9% 500 ML 500 ML IV SCH ×2 (04:22→17:50)
[2018-03-31] MEDS: COZAAR PO SCH (10:28)
[2018-03-31] MEDS: ZESTRIL PO SCH (10:29)
--- NOTE | 2018-03-31 13:56 | Progress Note ---
Assessment and Plan Assessment and plan: Patient is a 52 yo woman with a history of hypertension, dyslipidemia and NIDDM who presented with right leg pains and swelling * 03/22/18 VASCULAR LAB.PRELIMINARY REPORT. RLE VENOUS DUPLEX DONE. EVIDENCE OF ACUTE DVT IN THE RT.PERONEAL VEIN AT MID CALF. INFORMED AT 1119. * MRI right leg thickening. No air collections are identified. IMPRESSION: Destructive changes in the midfoot with fragmentation of bones and dislocations. The central fluid collection at the junction of the midfoot and hindfoot is consistent with abscess and marrow changes and enhancement are consistent with osteomyelitis. -Right foot abscess s/p I&D/ excisional debridement: Continue wound care, elevate the limb, antibiotics, pain medications -Rt Foot cellulitis; on empiric antibiotics, Elevate the limb. Continue antibiotics, follow cultures, foot x-ray ,multiple abnormalitied , -Right foot osteomyelitis: General Surgeon, Dr. Chaves is following, most likely amputation this week -Right leg Acute DVT; continue Lovenox full dose, elevate the limb, supportive, May switch to oral anticoagulants when patient is stable and no more surgeries -Hypertensive Urgency/Accelerated HTN: Moderate control, continue current antihypertensives and when necessary medications -Type 2 Diabetes; Accu-Chek sliding scale coverage and ADA diet, Insulin as needed, hemoglobin A1c 10.7 -Morbid obesity; BMI at 42.8: Advised weight reduction diet modification, exercise as tolerated -Severe malnutrition; nutrition supplement and supportive care -DVT prophylaxis; Lovenox d/w Dr. Chaves and he recommends wound care, ID to manage ABx, ABsolutely no weight bearing at least 4 weeks, no surgery/amputation per patient's choice. So , now we need to work on home IV per ID recommendation, which is difficult without insurance. Awaiting for home IV abx to be setup, pt will need Picc line, will defer to ID History Interval history: Patient was seen and examined. Follow-up on current diagnosis of right foot infection. Overnight uneventful. Patient denies any chest pain, shortness breath , nausea/vomiting or severe headaches. Imaging, nursing note, chart, labs and old chart reviewed. Discussed with patient. Hospitalist Physical - Physical exam Narrative exam: GEN: WDWN, NAD, Awake, Alert, Orientated x 3, morbid obese bmi 42.8 HEENT: NCAT, EOMI, PERRL, OP Clear NECK: supple, no adenopathy, no thyromegaly, no JVD CVS/HEART: RRR, normal S1S2, pulses present bilaterally CHEST/LUNGS: CTA B, Symmetrical chest expansion, good air entry bilaterally GI/Abdomen: soft, NTND, good bowel sounds, no guarding or rebound /Bladder: no suprapubic tenderness, no CVA or paraspinal tenderness EXT/Skin: right foot dsg is saturated with old blood, alerted the nurse MSK: FROM x 4 Neuro: CN 2-12 grossly intact, no new focal deficits Psych: calm - Constitutional Vitals: Temp Pulse Resp BP Pulse Ox 98.0 F 68 20 162/77 96 03/31/18 12:28 03/31/18 12:28 03/31/18 12:28 03/31/18 12:28 03/31/18 12:28 General appearance: Present: no acute distress, well-nourished Results - Labs CBC & Chem 7: 03/29/18 04:25 03/29/18 04:25 Labs: Laboratory Last Values WBC 10.9 K/mm3 (4.5-11.0) 03/29/18 04:25 RBC 3.59 M/mm3 (3.65-5.03) L 03/29/18 04:25 Hgb 9.3 gm/dl (10.1-14.3) L 03/29/18 04:25 Hct 29.1 % (30.3-42.9) L 03/29/18 04:25 MCV 81 fl (79-97) 03/29/18 04:25 MCH 26 pg (28-32) L 03/29/18 04:25 MCHC 32 % (30-34) 03/29/18 04:25 RDW 16.3 % (13.2-15.2) H 03/29/18 04:25 Plt Count 420 K/mm3 (140-440) 03/29/18 04:25 Lymph % (Auto) 22.2 % (13.4-35.0) 03/29/18 04:25 [place] % (Auto) 11.3 % (0.0-7.3) H 03/29/18 04:25 Eos % (Auto) 0.7 % (0.0-4.3) 03/29/18 04:25 Baso % (Auto) 0.5 % (0.0-1.8) 03/29/18 04:25 Lymph # 2.4 K/mm3 (1.2-5.4) 03/29/18 04:25 [place] # 1.2 K/mm3 (0.0-0.8) H 03/29/18 04:25 Eos # 0.1 K/mm3 (0.0-0.4) 03/29/18 04:25 Baso # 0.1 K/mm3 (0.0-0.1) 03/29/18 04:25 Seg Neutrophils % 65.3 % (40.0-70.0) 03/29/18 04:25 Seg Neutrophils # 7.1 K/mm3 (1.8-7.7) 03/29/18 04:25 PT 14.9 Sec. (12.2-14.9) 03/22/18 12:04 INR 1.11 (0.87-1.13) 03/22/18 12:04 APTT 28.1 Sec. (24.2-36.6) 03/22/18 12:04 Sodium 134 mmol/L (137-145) L 03/29/18 04:25 Potassium 4.3 mmol/L (3.6-5.0) 03/29/18 04:25 Chloride 97.8 mmol/L (98-107) L 03/29/18 04:25 Carbon Dioxide 23 mmol/L (22-30) 03/29/18 04:25 Anion Gap 18 mmol/L 03/29/18 04:25 BUN 20 mg/dL (7-17) H 03/29/18 04:25 Creatinine 0.9 mg/dL (0.7-1.2) 03/29/18 04:25 Estimated GFR > 60 ml/min 03/29/18 04:25 BUN/Creatinine Ratio 22 % 03/29/18 04:25 Glucose 143 mg/dL (65-100) H 03/29/18 04:25 POC Glucose 143 (70-105) H 03/31/18 11:42 Hemoglobin A1c 10.7 % (4-6) H 03/22/18 16:29 Calcium 8.2 mg/dL (8.4-10.2) L 03/29/18 04:25 Magnesium 2.00 mg/dL (1.7-2.3) 03/26/18 04:51 Total Bilirubin 0.20 mg/dL (0.1-1.2) 03/23/18 06:32 AST 16 units/L (5-40) 03/23/18 06:32 ALT 12 units/L (7-56) 03/23/18 06:32 Alkaline Phosphatase 88 units/L (35-129) 03/23/18 06:32 C-Reactive Protein 7.30 mg/dL (0.00-1.30) H 03/23/18 06:32 Total Protein 7.0 g/dL (6.3-8.2) 03/23/18 06:32 Albumin 2.8 g/dL (3.9-5) L 03/23/18 06:32 Albumin/Globulin Ratio 0.7 % 03/23/18 06:32 Vancomycin Trough 19.9 ug/mL (5.0-20.0) 03/25/18 11:12 Plasma/Serum Alcohol < 0.01 % (0-0.07) 03/27/18 13:59
--- NOTE | 2018-03-31 14:19 | Progress Note ---
Assessment and Plan - Patient Problems (1) Acute pain of right lower extremity Current Visit: Yes Status: Acute (2) Abscess of right foot Current Visit: Yes Status: Acute (3) Charcot's joint, right ankle and foot Current Visit: Yes Status: Acute Plan to address problem: 1) No weight bearing - right foot 2) Local wound care 3) F/u in [facility] Clinic 4) I do not see a need for alf antibiotics. 5) I will sign off. Subjective Date of service: 03/31/18 Patient Reports: Positive: no new complaints Objective Vital Signs - 12hr 03/31/18 03/31/18 06:29 12:28 Temperature 98.6 F 98.0 F Pulse Rate 71 68 Respiratory 16 20 Rate Blood Pressure 155/70 162/77 O2 Sat by Pulse 95 96 Oximetry - Musculoskeletal other (Foot wound was not re-examined.) - Labs 03/29/18 04:25 03/29/18 04:25 - Imaging Additional Studies: C&S - NG to date.
--- NOTE | 2018-03-31 14:27 | Progress Note ---
Assessment and Plan Assessment: 1) Right ankle / foot cellulitis, abscess and osteomyelitis: -Right foot XR showed generalized soft tissue swelling with Charcot joint with numerous subluxation, dislocations, fragmentations and hypertrophic sclerotic changes ? osteomyelitis -CRP=7.3. -US showed acute DVT of the right peroneal vein -MRI showed large abscess in the midfoot 7x5x5 cm, extensive destructive bone changes, fragmentation and dislocation c/w osteomyelitis -S/P OR debridement on 03/26 OR cx no growth 2) DM - uncontrolled 3) Previous diabetic left foot ulcer infection Plan: -stop unasyn and vanco -upon discharge will do ceftriaxone 2 g IV q day and flagyl 500 mg po TID for 6 weeks until 05/06/18 -pt w/o insurance will request administration patient assistance program for home IV abx -ID clinic f/u on 04/23 I am signing off Thank you for your consultation, will follow up with you. Rachna Sultana MD Infectious Diseases Specialist [facility] ([facility]) M [phone] O [phone] Subjective Date of service: 03/31/18 Principal diagnosis: right foot pain/edema Interval history: Feels ok no fever. Microbiology: 03/26 OR neg Current Antimicrobials: Unasyn Vanco Previous Antimicrobials: Objective - Exam Narrative Exam: General appearance: Alert in NAD, conversant Eyes: anicteric sclerae, moist conjunctivae; no lid-lag; PERRLA HENT: Atraumatic; oropharynx clear with moist mucous membranes and no mucosal ulcerations/no oral thrush; normal hard and soft palate. Normal external ears. Neck: Trachea midline; supple, no thyromegaly or lymphadenopathy Lungs: CTA, with normal respiratory effort and no intercostal retractions CV: RRR, no murmurs Abdomen: Soft, non-tender; no masses or hepatosplenomegaly Extremities: +decreased marked right foot edema with surgical dressings Skin: Normal temperature, turgor and texture; no rash, ulcers or subcutaneous nodules Psych: Appropriate affect, alert and oriented to person, place and time. Neuro: alert and oriented x 3. Moving all extermities Lines: No CVL / PICC - Constitutional Vitals: Vital Signs Temp Pulse Resp BP Pulse Ox 98.0 F 68 20 162/77 96 03/31/18 12:28 03/31/18 12:28 03/31/18 12:28 03/31/18 12:28 03/31/18 12:28 Temperature -Last 24 Hours Temperature 98.0 F Temperature 98.6 F Temperature 97.3 F Temperature 97.3 F - Labs CBC & Chem 7: 03/29/18 04:25 03/29/18 04:25 Labs: Abnormal lab results 03/30/18 03/30/18 03/31/18 Range/Units 16:53 21:40 07:45 POC Glucose 185 H 190 H 144 H (70-105) 03/31/18 Range/Units 11:42 POC Glucose 143 H (70-105)
[2018-04-01] MEDS: SODIUM CHLORIDE FLUSH SYRINGE 10 ML IV SCH ×2 (05:41→10:45)
[2018-04-01] MEDS: VANCOMYCIN 1,500 MG in NACL 0.9% 500 ML 500 ML IV SCH (06:42)
[2018-04-01] MEDS: APRESOLINE PO SCH ×2 (06:42→18:30)
[2018-04-01] MEDS: UNASYN/NS 3 GM/100 ML 3 GM/100 ML BAG IV SCH (06:43)
--- NOTE | 2018-04-01 08:35 | Progress Note ---
Assessment and Plan Assessment and plan: Patient is a 52 yo woman with a history of hypertension, dyslipidemia and NIDDM who presented with right leg pains and swelling * 03/22/18 VASCULAR LAB.PRELIMINARY REPORT. RLE VENOUS DUPLEX DONE. EVIDENCE OF ACUTE DVT IN THE RT.PERONEAL VEIN AT MID CALF. INFORMED AT 1119. * MRI right leg thickening. No air collections are identified. IMPRESSION: Destructive changes in the midfoot with fragmentation of bones and dislocations. The central fluid collection at the junction of the midfoot and hindfoot is consistent with abscess and marrow changes and enhancement are consistent with osteomyelitis. -Right foot abscess/cellulitis s/p I&D/ excisional debridement: Continue wound care, elevate the limb, antibiotics, pain medications -Right foot osteomyelitis ruled out per General Surgeon, Dr. 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 -Right leg Acute DVT; home with Eliquis -Hypertensive Urgency/Accelerated HTN: Moderate control, continue current antihypertensives and when necessary medications -Type 2 Diabetes; Accu-Chek sliding scale coverage and ADA diet, Insulin as needed, hemoglobin A1c 10.7 -Morbid obesity; BMI at 42.8: Advised weight reduction diet modification, exercise as tolerated -Severe malnutrition; nutrition supplement and supportive care -DVT prophylaxis; Lovenox therapeutic History Interval history: Patient was seen and examined. Follow-up on current diagnosis of right foot infection. Overnight uneventful. Patient denies any chest pain, shortness breath , nausea/vomiting or severe headaches. Imaging, nursing note, chart, labs and old chart reviewed. Discussed with patient. Hospitalist Physical - Physical exam Narrative exam: GEN: WDWN, NAD, Awake, Alert, Orientated x 3, morbid obese bmi 42.8 HEENT: NCAT, EOMI, PERRL, OP Clear NECK: supple, no adenopathy, no thyromegaly, no JVD CVS/HEART: RRR, normal S1S2, pulses present bilaterally CHEST/LUNGS: CTA B, Symmetrical chest expansion, good air entry bilaterally GI/Abdomen: soft, NTND, good bowel sounds, no guarding or rebound /Bladder: no suprapubic tenderness, no CVA or paraspinal tenderness EXT/Skin: right foot dsg is saturated with old blood, alerted the nurse MSK: FROM x 4 Neuro: CN 2-12 grossly intact, no new focal deficits Psych: calm - Constitutional Vitals: Temp Pulse Resp BP Pulse Ox 97.8 F 70 18 152/73 95 04/01/18 06:19 04/01/18 06:42 04/01/18 06:19 04/01/18 06:42 04/01/18 06:19 General appearance: Present: no acute distress, well-nourished Results - Labs CBC & Chem 7: 03/29/18 04:25 03/29/18 04:25 Labs: Laboratory Last Values WBC 10.9 K/mm3 (4.5-11.0) 03/29/18 04:25 RBC 3.59 M/mm3 (3.65-5.03) L 03/29/18 04:25 Hgb 9.3 gm/dl (10.1-14.3) L 03/29/18 04:25 Hct 29.1 % (30.3-42.9) L 03/29/18 04:25 MCV 81 fl (79-97) 03/29/18 04:25 MCH 26 pg (28-32) L 03/29/18 04:25 MCHC 32 % (30-34) 03/29/18 04:25 RDW 16.3 % (13.2-15.2) H 03/29/18 04:25 Plt Count 420 K/mm3 (140-440) 03/29/18 04:25 Lymph % (Auto) 22.2 % (13.4-35.0) 03/29/18 04:25 [place] % (Auto) 11.3 % (0.0-7.3) H 03/29/18 04:25 Eos % (Auto) 0.7 % (0.0-4.3) 03/29/18 04:25 Baso % (Auto) 0.5 % (0.0-1.8) 03/29/18 04:25 Lymph # 2.4 K/mm3 (1.2-5.4) 03/29/18 04:25 [place] # 1.2 K/mm3 (0.0-0.8) H 03/29/18 04:25 Eos # 0.1 K/mm3 (0.0-0.4) 03/29/18 04:25 Baso # 0.1 K/mm3 (0.0-0.1) 03/29/18 04:25 Seg Neutrophils % 65.3 % (40.0-70.0) 03/29/18 04:25 Seg Neutrophils # 7.1 K/mm3 (1.8-7.7) 03/29/18 04:25 PT 14.9 Sec. (12.2-14.9) 03/22/18 12:04 INR 1.11 (0.87-1.13) 03/22/18 12:04 APTT 28.1 Sec. (24.2-36.6) 03/22/18 12:04 Sodium 134 mmol/L (137-145) L 03/29/18 04:25 Potassium 4.3 mmol/L (3.6-5.0) 03/29/18 04:25 Chloride 97.8 mmol/L (98-107) L 03/29/18 04:25 Carbon Dioxide 23 mmol/L (22-30) 03/29/18 04:25 Anion Gap 18 mmol/L 03/29/18 04:25 BUN 20 mg/dL (7-17) H 03/29/18 04:25 Creatinine 0.9 mg/dL (0.7-1.2) 03/29/18 04:25 Estimated GFR > 60 ml/min 03/29/18 04:25 BUN/Creatinine Ratio 22 % 03/29/18 04:25 Glucose 143 mg/dL (65-100) H 03/29/18 04:25 POC Glucose 136 (70-105) H 04/01/18 07:49 Hemoglobin A1c 10.7 % (4-6) H 03/22/18 16:29 Calcium 8.2 mg/dL (8.4-10.2) L 03/29/18 04:25 Magnesium 2.00 mg/dL (1.7-2.3) 03/26/18 04:51 Total Bilirubin 0.20 mg/dL (0.1-1.2) 03/23/18 06:32 AST 16 units/L (5-40) 03/23/18 06:32 ALT 12 units/L (7-56) 03/23/18 06:32 Alkaline Phosphatase 88 units/L (35-129) 03/23/18 06:32 C-Reactive Protein 7.30 mg/dL (0.00-1.30) H 03/23/18 06:32 Total Protein 7.0 g/dL (6.3-8.2) 03/23/18 06:32 Albumin 2.8 g/dL (3.9-5) L 03/23/18 06:32 Albumin/Globulin Ratio 0.7 % 03/23/18 06:32 Vancomycin Trough 35.3 ug/mL (5.0-20.0) H 03/31/18 23:03 Plasma/Serum Alcohol < 0.01 % (0-0.07) 03/27/18 13:59
--- NOTE | 2018-04-01 09:54 | Progress Note ---
Assessment and Plan Assessment: 1) Right ankle / foot cellulitis, abscess and osteomyelitis: -Right foot XR showed generalized soft tissue swelling with Charcot joint with numerous subluxation, dislocations, fragmentations and hypertrophic sclerotic changes ? osteomyelitis -CRP=7.3. -US showed acute DVT of the right peroneal vein -MRI showed presumed large abscess in the midfoot 7x5x5 cm, extensive destructive bone changes, fragmentation and dislocation c/w osteomyelitis -S/P OR debridement on 03/26 OR cx no growth. OR finding NO PURULENCE NO OSTEO SEEN 2) DM - uncontrolled 3) Previous diabetic left foot ulcer infection Plan: -stop unasyn and vanco -no further systemic abx needed -f/u with wound care Discussed in detail with Dr Chaves and Dr Moody I am signing off Thank you for your consultation, will follow up with you. Rachna Sultana MD Infectious Diseases Specialist [facility] ([facility]) M [phone] O [phone] Subjective Date of service: 04/01/18 Principal diagnosis: right foot pain/edema Interval history: Feels ok no fever. Microbiology: 03/26 OR neg Current Antimicrobials: none Previous Antimicrobials: Unasyn Vanco Objective - Exam Narrative Exam: General appearance: Alert in NAD, conversant Eyes: anicteric sclerae, moist conjunctivae; no lid-lag; PERRLA HENT: Atraumatic; oropharynx clear with moist mucous membranes and no mucosal ulcerations/no oral thrush; normal hard and soft palate. Normal external ears. Neck: Trachea midline; supple, no thyromegaly or lymphadenopathy Lungs: CTA, with normal respiratory effort and no intercostal retractions CV: RRR, no murmurs Abdomen: Soft, non-tender; no masses or hepatosplenomegaly Extremities: +decreased marked right foot edema with surgical dressings Skin: Normal temperature, turgor and texture; no rash, ulcers or subcutaneous nodules Psych: Appropriate affect, alert and oriented to person, place and time. Neuro: alert and oriented x 3. Moving all extermities Lines: No CVL / PICC - Constitutional Vitals: Vital Signs Temp Pulse Resp BP Pulse Ox 97.8 F 70 18 152/73 95 04/01/18 06:19 04/01/18 06:42 04/01/18 06:19 04/01/18 06:42 04/01/18 06:19 Temperature -Last 24 Hours Temperature 97.8 F Temperature 98.2 F Temperature 98.1 F Temperature 98.0 F - Labs CBC & Chem 7: 03/29/18 04:25 03/29/18 04:25 Labs: Abnormal lab results 03/31/18 03/31/18 03/31/18 Range/Units 11:42 16:56 22:51 POC Glucose 143 H 196 H 225 H (70-105) Vancomycin Trough (5.0-20.0) ug/mL 03/31/18 04/01/18 Range/Units 23:03 07:49 POC Glucose 136 H (70-105) Vancomycin Trough 35.3 H (5.0-20.0) ug/mL
[2018-04-01] MEDS ORDERED: ELIQUIS PO SCH (10:00)
--- NOTE | 2018-04-01 10:15 | Discharge Summary ---
Providers - Providers Date of Admission: 03/22/18 12:18 Date of discharge: 04/01/18 Attending physician: DARREN ELY 03/22/18 23:21 Consult to Physician [CONS] Routine Comment: Consulting Provider: WILLIAM WHELAN Physician Instructions: Reason For Exam: Cellulitis rt Foot 03/24/18 10:39 Consult to Physician [CONS] Routine Comment: Consulting Provider: INGRIS NAZARIO Physician Instructions: Reason For Exam: Rt. 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 RLE VENOUS DUPLEX DONE. EVIDENCE OF ACUTE DVT IN THE RT.PERONEAL VEIN AT MID CALF. INFORMED AT 1119. * MRI right leg thickening. No air collections are identified. IMPRESSION: Destructive changes in the midfoot with fragmentation of bones and dislocations. The central fluid collection at the junction of the midfoot and hindfoot is consistent with abscess and marrow changes and enhancement are consistent with osteomyelitis. -Right foot abscess/cellulitis s/p I&D/ excisional debridement: Continue wound care, elevate the limb, antibiotics, pain medications -Charot joint complication instead of infection/abscess, per consultants -Right foot osteomyelitis ruled out per General Surgeon, Dr. 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 -Right leg Acute DVT; home with Eliquis -Hypertensive Urgency/Accelerated HTN: Moderate control, continue current antihypertensives and when necessary medications -Type 2 Diabetes; Accu-Chek sliding scale coverage and ADA diet, Insulin as needed, hemoglobin A1c 10.7 -Morbid obesity; BMI at 42.8: Advised weight reduction diet modification, exercise as tolerated -Severe malnutrition; nutrition supplement and supportive care -DVT prophylaxis; on therapeutic Lovenox therapeutic Disposition: TO HOME OR SELFCARE Time spent for discharge: 35 minutes Core Measure Documentation - Palliative Care Palliative Care/ Comfort Measures: Not Applicable - Core Measures Any of the following diagnoses?: DVT/PE - VTE Discharge Requirements Deep Vein Thrombosis/Pulmonary Embolism Present on Admission: Yes Has pt received <5 days of overlap therapy or INR<2.0: No (on Eliquis) Anticoagulant overlap therapy prescribed at discharge: No Contraindication No Overlap Therapy order at DC: Not Indicated Exam - Physical Exam Narrative exam: GEN: WDWN, NAD, Awake, Alert, Orientated x 3, morbid obese bmi 42.8 HEENT: NCAT, EOMI, PERRL, OP Clear NECK: supple, no adenopathy, no thyromegaly, no JVD CVS/HEART: RRR, normal S1S2, pulses present bilaterally CHEST/LUNGS: CTA B, Symmetrical chest expansion, good air entry bilaterally GI/Abdomen: soft, NTND, good bowel sounds, no guarding or rebound /Bladder: no suprapubic tenderness, no CVA or paraspinal tenderness EXT/Skin: right foot dsg is saturated with old blood, alerted the nurse MSK: FROM x 4 Neuro: CN 2-12 grossly intact, no new focal deficits Psych: calm - Constitutional Vitals: Temp Pulse Resp BP Pulse Ox 97.8 F 70 18 152/73 95 04/01/18 06:19 04/01/18 06:42 04/01/18 06:19 04/01/18 06:42 04/01/18 06:19 Plan Activity: other (no strenous activity ) Weight Bearing Status: Non-Weight Bearing (right foot and right leg for at least 4 weeks) Diet: low salt Wound: per your surgeon's advice Durable Medical Equipment Needed Upon Discharge: Wheelchair Follow up with: PRIMARY CAREMD [Primary Care Provider] - 3-5 Days WILLIAM WHELAN MD [Staff Physician] - 7 Days CARA CHAVES MD [Staff Physician] - 7 Days Prescriptions: AtorvaSTATin [Lipitor] 10 mg PO QHS #30 tab Apixaban [Eliquis] 10 mg PO Q12HR 7 Days tablet Apixaban [Eliquis] 5 mg PO Q12H 30 Days tab.ds.pk Cyclobenzaprine [Flexeril 10 MG TAB] 10 mg PO BID PRN #20 tablet PRN Reason: Muscle Spasm Famotidine [Pepcid] 20 mg PO BID #14 tablet Insulin Regular, Human [Novolin R] 1 dose SQ ACHS PRN #1 vial PRN Reason: Hyperglycemia Lisinopril [Zestril TAB] 20 mg PO QDAY #30 tablet Meclizine [Antivert] 25 mg PO TID PRN #20 tablet PRN Reason: Vertigo Metoprolol [Lopressor TAB] 12.5 mg PO BID #60 tablet oxyCODONE /ACETAMINOPHEN [Percocet 5/325 mg] 1 tab PO Q6H PRN #20 tablet PRN Reason: Pain , Severe (7-10) Other Discharge Orders: Glucometer supplies[Amb] Location: None Selected Glucometer (Amb) Location: None Selected
[2018-04-01] MEDS: LOPRESSOR PO SCH (10:43)
[2018-04-01] MEDS: ZESTRIL PO SCH (10:44)
[2018-04-01] MEDS: COZAAR PO SCH (10:44)
[2018-04-01 10:45] VITALS: BP 166/75
[2018-04-01] MEDS: PEPCID PO SCH (10:45)
[2018-04-01] MEDS: HumaLOG SUB-Q SCH ×4 (13:08→17:29)
[2018-04-01] MEDS: PERCOCET 5/325 PO PRN (17:53)
== END 2018-04-01 18:34 | disposition home health service (06) | DRG 264 ==
LOC: ED 09:38 → 3A 12:18
PROVIDERS: ADMIT Internal Medicine; ATTEND Internal Medicine
PROC: 0JBQ0ZZ Excision of Right Foot Subcutaneous Tissue and Fascia, Open Approach (ICD-10-PCS; principal; 2018-03-26)
DX: I82.491 Acute embolism and thrombosis of other specified deep vein of right lower extremity (principal); E43 Unspecified severe protein-calorie malnutrition; L02.611 Cutaneous abscess of right foot; L03.115 Cellulitis of right lower limb; Z68.41 Body mass index [BMI] 40.0-44.9, adult; I10 Essential (primary) hypertension; E11.610 Type 2 diabetes mellitus with diabetic neuropathic arthropathy; I16.0 Hypertensive urgency; E66.01 Morbid (severe) obesity due to excess calories; Z71.3 Dietary counseling and surveillance; Z79.4 Long term (current) use of insulin; Z79.899 Other long term (current) drug therapy; Z79.82 Long term (current) use of aspirin
CPT/HCPCS: 36415; 80048; 80053; 80202; 80320; 82962; 83036; 83735; 85025; 85027; 85610; 85730; 86140; 87075; 87116; A9270-GY; A9577; G0480; J0295; J0360; J1170; J1644; J1650; J1815; J2250; J2270; J2405; J2704; J3370; J7040; J7042; J7120